=== PATIENT | male | born 1975 | race Caucasian/White ===

== ENCOUNTER 2016-11-14 11:47 | Emergency (ER) | payer SELFPAY ==
[~2016-11-14] VITALS: Ht 188 cm; Wt 62.8 kg
[~2016-11-14 11:47] MED LIST: BACT2OIN TOP; BACT800T5 PO; CARB6.5S5 EACH EAR; CORTIS10A EACH EAR; ERYT1O EACH EYE; PERM5CRE TOP
[2016-11-14 11:53] VITALS: BP 119/89; PULSE 88; RESP 18; TEMP 97.4; O2SAT 100
--- NOTE | 2016-11-14 13:16 | PD ---
HPI Chief Complaint: Skin Problem Time Seen by Provider: 13:13 Travel History International Travel<30 days: No Contact w/Intl Traveler<30days: No Traveled to known affect area: No History of Present Illness HPI Patient comes in complaining of painful lump on his left earlobe ongoing for 8 days. Patient's significant other has been puncturing it and draining some pus , however it keeps filling back up. Patient states he's had similar past on his other ear that went away after simple puncturing. Patient has pain that is throbbing like in nature without radiation. Pain is worse to palpation. Denies any fevers. PFSH Past Medical History Narrative Medical Alcoholism, alcohol withdrawal seizures Past Surgical History Appendectomy: Yes Other Surgery: Yes (AMPUTATION OF 2ND DIGIT OF LEFT HAND) Social History Alcohol Use: Yes (DAILY) Tobacco Use: Yes (ppd) Substance Use: No Allergies-Medications (Allergen,Severity, Reaction): Coded Allergies: No Known Allergies (Verified , 11/14/16) Reported Meds & Prescriptions Reported Meds & Active Scripts Active Bactrim DS (Sulfamethoxazole-Trimethoprim) 800-160 Mg Tab 1 Tab PO BID Elimite (Permethrin) 5 % Cr 60 Gm TOP DIRECTED PATIENT INSTRUCTIONS: THOROUGHLY MASSAGE ELIMITE (PERMETHRIN) 5% CREAM INTO THE SKIN FROM HEAD TO TOE COVERING ALL EXTERNAL BODY PARTS. THE CREAM SHOULD BE REMOVED BY WASHING (SHOWER OR BATH) 8 TO 14 HOURS AFTER APPLICATION. PATIENTS MAY EXPERIENCE ITCHING AFTER TREATMENT AND IS RARELY A SIGN OF TREATMENT FAILURE. Cortisporin Otic Suspension (Neomycin/Polymyxin/Hydrocortisone) 10 Ml Susp 4 Drop EACH EAR QID 7 Days Debrox (Carbamide Peroxide) 6.5 % Soln 5 Drop EACH EAR BID 5 Days Erythromycin Opht 0.5% Oint (Erythromycin) 0.5 % Oint 1 Applic EACH EYE TID Instill 1/2 inch Bactrim DS (Sulfamethoxazole-Trimethoprim DS) 1 Tab Tab 1 Tab PO BID Bactroban 2% Oint (22 gm) (Mupirocin) 22 Gm Oint 2 % TOP BID 10 Days APPLY TO AFFECTED AREAS Review of Systems Except as stated in HPI: all other systems reviewed are Neg Physical Exam Narrative GENERAL: Well-developed, well nourished, in no acute distress, and non-ill appearing. SKIN: Warm and dry. Small fluctuant abscess noted on left earlobe that is tender to palpation. There is no active drainage noted currently. HEAD: Atraumatic. Normocephalic. EYES: Pupils equal and round. EOMI. No scleral icterus. No injection or drainage. ENT: No nasal bleeding or discharge. Mucous membranes pink and moist. NECK: Trachea midline. Supple. No nuclear rigidity. RESPIRATORY: No accessory muscle use. No respiratory distress. MUSCULOSKELETAL: No obvious deformities. No clubbing. No cyanosis. No edema. Full range of motion. NEUROLOGICAL: Awake and alert. No obvious cranial nerve deficits. Motor grossly within normal limits. Normal speech. PSYCHIATRIC: Appropriate mood and affect; insight and judgment normal. Data Data Last Documented VS Vital Signs Date Time Temp Pulse Resp B/P Pulse Ox O2 Delivery O2 Flow Rate FiO2 11/14/16 11:53 97.4 88 18 119/89 100 Orders Wound Culture And Gram Stain (11/14/16 13:12) MDM Medical Decision Making Medical Screen Exam Complete: Yes Emergency Medical Condition: Yes Differential Diagnosis Abscess, cellulitis, keloid, other Narrative Course The patient has no evidence of significant cellulitis. There is no evidence of necrotizing fasciitis/ For[place] at this time. The patient will be discharged on antibiotics. The patient was given signs and symptoms warnings for worsening infection, such as spreading of redness, increasing pain, and/or swelling, associated heat, or fever or feels worse, and instructed to return immediately if these signs or symptoms worsen. The patient is to return in 2 days for recheck. Sooner if worsens or as needed. The patient agrees with plan. Patient in no obvious distress upon re-evaluation. Patient was asked if they wanted to speak to my attending, which the patient did not wish to do at this time. Any questions/concerns in reference to patient diagnosis/condition discussed and clarified prior to patient's discharge. Reinforced sheer importance of close follow up with patient's primary physician or primary care clinic. Instructed patient to return to ED immediately, if symptoms return/ worsen. Pt showed understanding of above instructions. Further instructions and recommendations were detailed in discharge paperwork. Pt ambulated without difficulty out of ED at discharge. Procedures Procedure Narrative Verbal consent was obtained. Area was cleaned and prepped which caused to start draining spontaneously. Culture was obtained. Abscess was drained. Patient tolerated the procedure well. There was no complications. Diagnosis Primary Impression: Abscess of left earlobe Patient Instructions: Abscess (GEN), Abscess Follow-up (ED), General Instructions Additional Instructions: Follow-up with your primary care physician or return here in 2 days for recheck. Take all medication as prescribed. Return to the emergency department if symptoms get worse. Med/Other Pt SpecificInfo: Prescription(s) given Scripts Sulfamethoxazole-Trimethoprim (Bactrim DS)800-160 Mg Tab1 Tab PO BID #20 TAB Ref 0 Prov:Concepción Duvall MD 11/14/16 Disposition: 01 DISCHARGE HOME Condition: Stable Tyron Oliver Nov 14, 2016 13:16
[2016-11-14] MEDS ORDERED: BACT800T5 PO (13:17)
== END 2016-11-14 13:44 | disposition home or self-care (01) ==
LOC: PHED 11:47 → PHEFT 13:44
DX: H60.02 Abscess of left external ear (principal)
CPT/HCPCS: 87070; 87205; 99283

== ENCOUNTER 2016-12-23 10:26 | Emergency (ER) | payer SELFPAY ==
[~2016-12-23] VITALS: Ht 188 cm; Wt 62.0 kg
[~2016-12-23 10:26] MED LIST changes: -BACT2OIN TOP; -CARB6.5S5 EACH EAR; -CORTIS10A EACH EAR; -ERYT1O EACH EYE; -PERM5CRE TOP
[2016-12-23 10:27] VITALS: BP 108/80; PULSE 91; RESP 16; TEMP 97.8; O2SAT 98
[2016-12-23] MEDS ORDERED: MUPI2%T TOPICAL (10:47)
[2016-12-23] MEDS ORDERED: BACT800T5 PO (10:47)
[2016-12-23] MEDS ORDERED: CEPH-460 PO (10:47)
--- NOTE | 2016-12-23 10:47 | PD ---
HPI Chief Complaint: Skin Problem Time Seen by Provider: 10:33 Travel History International Travel<30 days: No Contact w/Intl Traveler<30days: No Traveled to known affect area: No History of Present Illness HPI This is a 41-year-old male who presents to the emergency department with a rash on his lower abdomen on the left which has been present for 4-5 days, itchy, moderate severity, constant. He says his daughter was recently hospitalized with MRSA. He denies any fevers or chills. PFSH Past Medical History Hx Anticoagulant Therapy: No Diabetes: No Influenza Vaccination: No Past Surgical History Appendectomy: Yes Other Surgery: Yes (AMPUTATION OF 2ND DIGIT OF LEFT HAND) Social History Alcohol Use: Yes (DAILY) Tobacco Use: Yes (ppd) Substance Use: No Allergies-Medications (Allergen,Severity, Reaction): Coded Allergies: No Known Allergies (Verified , 11/14/16) Reported Meds & Prescriptions Reported Meds & Active Scripts Active Bactrim DS (Sulfamethoxazole-Trimethoprim) 800-160 Mg Tab 1 Tab PO BID Review of Systems General / Constitutional: No: Fever, Chills Respiratory: No: Shortness of Breath Physical Exam Narrative GENERAL: Well-appearing, no acute distress, nontoxic SKIN: 2 cm annular lesion on the left abdomen immediately above the groin along the pain at line with some induration, no pale center HEAD: Atraumatic. Normocephalic. ENT: No nasal bleeding or discharge. Moist mucous membranes MUSCULOSKELETAL: No obvious deformities. No clubbing. No cyanosis. No edema. NEUROLOGICAL: Awake and alert. No obvious cranial nerve deficits. Motor grossly within normal limits. Normal speech. PSYCHIATRIC: Appropriate mood and affect; insight and judgment normal. Data Data Last Documented VS Vital Signs Date Time Temp Pulse Resp B/P Pulse Ox O2 Delivery O2 Flow Rate FiO2 12/23/16 10:27 97.8 91 16 108/80 98 MDM Medical Decision Making Medical Screen Exam Complete: Yes Emergency Medical Condition: Yes Differential Diagnosis Contact dermatitis, cellulitis, ringworm, abscess Narrative Course This is a 41-year-old male who presents to the emergency department with a lesion on his left lower abdomen which appears to be a contact dermatitis. He did recently purchased new pants and wore them without washing them from the store and I suspect this may be the source. Patient does have a recent contact with MRSA. In the setting of this, patient will be discharged with antibiotics but I did advise him to avoid his new pants as I suspect this is the source of his skin lesion. Diagnosis Primary Impression: Contact dermatitis Qualified Code: L24.9 - Irritant contact dermatitis, unspecified trigger Patient Instructions: General Instructions Additional Instructions: If you develop fever, increasing redness, warmth, or spreading of your infection , or severe pain return to the emergency department immediately as you may require antibiotics through your IV. Complete your course of antibiotics as prescribed. Med/Other Pt SpecificInfo: Prescription(s) given Scripts Mupirocin Topical (Bactroban Topical)2 % Cream1 Applic TOPICAL BID #1 TUBE Ref 0 Prov:Anju Oconnell MD 12/23/16 Sulfamethoxazole-Trimethoprim (Bactrim DS)800-160 Mg Tab1 Tab PO BID #10 TAB Ref 0 Prov:Anju Oconnell MD 12/23/16 Cephalexin (Keflex)500 Mg [id number] Mg PO Q6H 5 Days Ref 0 Prov:Anuj Oconnell MD 12/23/16 Disposition: 01 DISCHARGE HOME Condition: Stable Anju Oconnell MD Dec 23, 2016 10:47
== END 2016-12-23 11:12 | disposition home or self-care (01) ==
LOC: PHEFT 10:26
DX: L25.9 Unspecified contact dermatitis, unspecified cause (principal)
CPT/HCPCS: 99282

== ENCOUNTER 2017-01-09 18:05 | Emergency (ER) | payer SELFPAY ==
[~2017-01-09] VITALS: Ht 188 cm; Wt 62.0 kg
[~2017-01-09 18:05] MED LIST changes: +CEPH-460 PO; +MUPI2%T TOPICAL
[2017-01-09 18:10] VITALS: BP 151/93; PULSE 108; RESP 16; TEMP 97.9; O2SAT 95
[2017-01-09] MEDS ORDERED: BACT800T5 PO (18:33)
[2017-01-09] MEDS ORDERED: IBUP800T23 PO (18:33)
--- NOTE | 2017-01-09 18:36 | PD ---
HPI Chief Complaint: Lump, Cyst, Hernia Time Seen by Provider: 18:33 Travel History International Travel<30 days: No Contact w/Intl Traveler<30days: No Traveled to known affect area: No History of Present Illness HPI 41-year-old male presents to emergency Department with swollen, erythematous, tender, lesion to the left upper lateral breast/[place] for the past 2 days. Patient may have been bitten or scratched by his pet rabbit. Patient has a history of MRSA. Patient states yesterday was the size of a dime and now it is approximately 3 inches in diameter. He denies any drainage or fever, or chills. Patient has no other acute complaints. He has no known drug allergies. PFSH Past Medical History Hx Anticoagulant Therapy: No Diabetes: No Influenza Vaccination: No Past Surgical History Appendectomy: Yes Other Surgery: Yes (AMPUTATION OF 2ND DIGIT OF LEFT HAND) Social History Alcohol Use: Yes (DAILY) Tobacco Use: Yes ( 1ppd) Substance Use: No Allergies-Medications (Allergen,Severity, Reaction): Coded Allergies: No Known Allergies (Verified , 01/09/17) Reported Meds & Prescriptions Reported Meds & Active Scripts Active Bactrim DS (Sulfamethoxazole-Trimethoprim) 800-160 Mg Tab 1 Tab PO BID Ibuprofen 800 Mg Tab 800 Mg PO Q8H PRN Review of Systems Except as stated in HPI: all other systems reviewed are Neg General / Constitutional: No: Fever, Chills Eyes: No: Visual changes HENT: No: Headaches Cardiovascular: No: Chest Pain or Discomfort Respiratory: No: Shortness of Breath Gastrointestinal: No: Abdominal Pain Genitourinary: No: Dysuria Musculoskeletal: No: Pain Skin: Positive Lesions, No Rash Neurologic: No: Weakness Psychiatric: No: Depression Endocrine: No: Polydipsia Hematologic/Lymphatic: No: Easy Bruising Physical Exam Narrative GENERAL: Patient appears in no acute distress. SKIN: Warm and dry. Normal color. Normal turgor. Patient is very disheveled. Patient has indurated erythematous tender swollen area to the left nipple at the 1 o'clock position without pointing or obvious signs of abscess. Erythema measures approximately 3 inches in diameter. There is no expressible drainage. There is no lymphangitis or streaking. HEAD: Atraumatic. Normocephalic. EYES: Pupils equal and round. No scleral icterus. No injection or drainage. ENT: No nasal bleeding or discharge. Mucous membranes pink and moist. Pharynx is normal. NECK: Trachea midline. Supple and nontender. CARDIOVASCULAR: Regular rate and rhythm. RESPIRATORY: No accessory muscle use. Clear to auscultation. Breath sounds equal bilaterally. MUSCULOSKELETAL: Extremities without clubbing, cyanosis, or edema. No obvious deformities. NEUROLOGICAL: Awake and alert. No obvious cranial nerve deficits. Motor grossly within normal limits. Five out of 5 muscle strength in the arms and legs. Normal speech. PSYCHIATRIC: Appropriate mood and affect; insight and judgment normal. Data Data Last Documented VS Vital Signs Date Time Temp Pulse Resp B/P Pulse Ox O2 Delivery O2 Flow Rate FiO2 01/09/17 18:10 97.9 108 16 151/93 95 MDM Medical Decision Making Medical Screen Exam Complete: Yes Emergency Medical Condition: Yes Medical Record Reviewed: Yes Differential Diagnosis Cellulitis. Mastitis. MRSA. Narrative Course Patient is medically stable at time of exam. Drainable abscesses not felt present at this time. Patient will be given Bactrim DS twice a day 10 days. Patient also given ibuprofen 800 mg 3 times daily with food #30. Patient is to use hot compresses to the area and follow up if symptoms do not improve over the next 48 hours. Diagnosis Primary Impression: Cellulitis of left breast Patient Instructions: Cellulitis (ED), General Instructions, MRSA (Methicillin Resistant Staphylococcus Aureus) (ED) Additional Instructions: Drainable abscesses not felt present at this time. Patient will be given Bactrim DS twice a day 10 days. Patient also given ibuprofen 800 mg 3 times daily with food #30. Patient is to use hot compresses to the area and follow up if symptoms do not improve over the next 48 hours. Med/Other Pt SpecificInfo: Prescription(s) given Scripts Sulfamethoxazole-Trimethoprim (Bactrim DS)800-160 Mg Tab1 Tab PO BID #20 TAB Prov:Yuan Rosen MD 01/09/17 Ibuprofen 800 Mg Nva080 Mg PO Q8H PRN (Pain/Inflammation) #30 TAB Prov:Yuan Rosen MD 01/09/17 Disposition: 01 DISCHARGE HOME Condition: Stable Alverto Aguillon Jan 09, 2017 18:36
== END 2017-01-09 18:54 | disposition home or self-care (01) ==
LOC: PHEFT 18:05
DX: N61.0 Mastitis without abscess (principal); F17.210 Nicotine dependence, cigarettes, uncomplicated
CPT/HCPCS: 99282

== ENCOUNTER 2017-04-18 12:44 | Emergency (ER) | payer SELFPAY ==
[~2017-04-18] VITALS: Ht 188 cm; Wt 61.0 kg
[~2017-04-18 12:44] MED LIST changes: -CEPH-460 PO; +IBUP800T23 PO; -MUPI2%T TOPICAL
[2017-04-18 12:46] VITALS: BP 103/64; PULSE 104; RESP 16; TEMP 98.3; O2SAT 98
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
== END 2017-04-18 13:25 | disposition left against medical advice (07) ==
LOC: NEPD 12:44
DX: K08.89 Other specified disorders of teeth and supporting structures (principal); F17.200 Nicotine dependence, unspecified, uncomplicated
CPT/HCPCS: 99281

== ENCOUNTER 2017-06-21 17:51 | Emergency (ER) | payer SELFPAY ==
[~2017-06-21] VITALS: Ht 188 cm; Wt 56.0 kg
[2017-06-21 17:54] VITALS: BP 104/68; PULSE 122; RESP 20; TEMP 98; O2SAT 97
[2017-06-21] MEDS ORDERED: BACI500O9 TOPICAL (18:27)
[2017-06-21] MEDS ORDERED: BENA25CA4 PO (18:27)
[2017-06-21] MEDS ORDERED: LOTR1CRE3 TOPICAL (18:27)
--- NOTE | 2017-06-21 18:28 | PD ---
HPI Chief Complaint: Skin Problem Time Seen by Provider: 18:21 Travel History International Travel<30 days: No Contact w/Intl Traveler<30days: No Traveled to known affect area: No History of Present Illness HPI 41-year-old male patient who is homeless and has been living his van, presents to the ER today because he has had at least a one-week history of scaling rash on both arms which she has been scratching at. He states that he has a few friends who have also had the same rash. He denies any fevers, or rash anywhere else. He also states that he has history of chronic back pains and has been given hydrocodone by his primary care physician, states that he has been staying a lot in his van and his back pains have come back. He denies any new issues that his back pain, no fevers, no incontinence, or other issues. He is ambulatory without issues. Back pain has been a 7 out of 10 recently. Modifying Factors: None Associated Signs & Symptoms: Chronic back pain, rash to both arms Risk Factors: Possible sick contact, history chronic back pain PFSH Past Medical History Hx Anticoagulant Therapy: No Diabetes: No Past Surgical History Appendectomy: Yes Other Surgery: Yes (AMPUTATION OF 2ND DIGIT OF LEFT HAND) Social History Alcohol Use: Yes (DAILY) Tobacco Use: Yes ( 1ppd) Substance Use: No Allergies-Medications (Allergen,Severity, Reaction): Coded Allergies: No Known Allergies (Verified , 06/21/17) Reported Meds & Prescriptions Reported Meds & Active Scripts Active Bactrim DS (Sulfamethoxazole-Trimethoprim) 800-160 Mg Tab 1 Tab PO BID Ibuprofen 800 Mg Tab 800 Mg PO Q8H PRN Review of Systems Except as stated in HPI: all other systems reviewed are Neg Physical Exam Narrative GENERAL: Well-developed middle age white male patient currently in no acute distress. Awake and alert and oriented 3. SKIN: Focused skin assessment warm/dry. There are notable 1 cm round discoid scaling erythematous plaques on both elbow and forearm areas with the ones on the left notable for excoriations. No fluctuance. HEAD: Atraumatic. Normocephalic. EYES: Pupils equal and round. No scleral icterus. No injection or drainage. ENT: No nasal bleeding or discharge. Mucous membranes pink and moist. NECK: Trachea midline. No JVD. CARDIOVASCULAR: Regular rate and rhythm. No murmur appreciated. RESPIRATORY: No accessory muscle use. Clear to auscultation. Breath sounds equal bilaterally. GASTROINTESTINAL: Abdomen soft, non-tender, nondistended. Hepatic and splenic margins not palpable. MUSCULOSKELETAL: No obvious deformities. No clubbing. No cyanosis. No edema. NEUROLOGICAL: Awake and alert. No obvious cranial nerve deficits. Motor grossly within normal limits. Normal speech. PSYCHIATRIC: Appropriate mood and affect; insight and judgment normal. Data Data Last Documented VS Vital Signs Date Time Temp Pulse Resp B/P (MAP) Pulse Ox O2 Delivery O2 Flow Rate FiO2 06/21/17 17:54 98.0 122 20 104/68 (80) 97 Room Air MDM Medical Decision Making Medical Screen Exam Complete: Yes Emergency Medical Condition: Yes Medical Record Reviewed: Yes Differential Diagnosis Rash: Ringworm versus cellulitis versus allergic reaction, chronic back pain versus strain Narrative Course Patient is ambulatory in the ER does not appear to be any acute distress. He has no focal neurological deficits or any incontinence. At this point, I suspect that this is his chronic back pains. He states it is and he states that he wanted a refill of his hydrocodone. I have notified him that we will not be doing that here and that he can follow-up with primary care physician for further treatment. The rash has appearance of ringworm and his left side appears to be fairly excoriated with some mild underlying cellulitis. My plan would be to treat him with antibiotics and antifungal cream. Follow-up with primary care physician. Return for any worsening in issues as needed. The plan has discussed with him and he states understanding. Diagnosis Primary Impression: Ringworm Med/Other Pt SpecificInfo: Prescription(s) given Scripts Bacitracin Topical (Bacitracin Topical) 500 Unit/Gm Oint 1 APPLIC TOPICAL BID for Infection, #30 GM 0 Refills Prov: Jaye Raya MD 06/21/17 Butenafine Topical (Lotrimin Ultra Topical) 1% Cream 1 APPLIC TOPICAL BID for Infection, #1 TUBE 0 Refills Apply to: Prov: Jaye Raya MD 06/21/17 Diphenhydramine HCl (Benadryl Allergy) 25 Mg Cap 25 MG PO QID Y for ITCHING, #20 Prov: Jaye Raya MD 06/21/17 Disposition: 01 DISCHARGE HOME Condition: Stable Soontharothai,Rewadee MD Jun 21, 2017 18:28
[2017-06-21 19:09] VITALS: BP 98/67; PULSE 90; RESP 18; O2SAT 98
== END 2017-06-21 19:10 | disposition home or self-care (01) ==
LOC: NEPC 17:51
DX: B35.9 Dermatophytosis, unspecified (principal); F17.200 Nicotine dependence, unspecified, uncomplicated; Z59.0 Homelessness
CPT/HCPCS: 99282

== ENCOUNTER 2017-09-29 09:29 | Emergency (ER) | payer SELFPAY ==
[~2017-09-29] VITALS: Ht 188 cm; Wt 63.5 kg
[~2017-09-29 09:29] MED LIST changes: +BACI500O9 TOPICAL; +BENA25CA4 PO; +IBUP1TAB7 PO; -IBUP800T23 PO; +LOTR1CRE3 TOPICAL
[2017-09-29 09:31] VITALS: BP 119/85; PULSE 99; RESP 13; TEMP 97.9; O2SAT 100
--- NOTE | 2017-09-29 10:02 | PD ---
HPI Chief Complaint: ENT Complaint Time Seen by Provider: 09:50 Travel History International Travel<30 days: No Contact w/Intl Traveler<30days: No Traveled to known affect area: No History of Present Illness HPI 42-year-old male presents to the emergency room for evaluation of left ear fullness and decreased hearing for the past week. Patient states he started applying [id number] eardrops without any relief in symptoms. His significant other with him states she has been having disagreement him to get him to respond to her. Patient denies any significant ear pain, drainage, or fevers. No other associated symptoms. States last time he had this issue, he came to the emergency room in the cleaned out his ears for him. History Social History Alcohol Use: Yes (DAILY) Tobacco Use: Yes ( 1ppd) Allergies-Medications (Allergen,Severity, Reaction): Coded Allergies: No Known Allergies (Verified Adverse Reaction, Unknown, 09/29/17) Reported Meds & Prescriptions Reported Meds & Active Scripts Active Review of Systems Except as stated in HPI: all other systems reviewed are Neg Physical Exam Narrative GENERAL: Well-nourished, well-developed male in no acute distress. Afebrile. Ambulatory. SKIN: Focused skin assessment warm/dry. HEAD: Normocephalic. EYES: No scleral icterus. No injection or drainage. EARS: Bilateral pinnae and external canals appear within normal limits. Right tympanic membrane is unremarkable. Left ear canal is occluded with cerumen. NECK: Supple, trachea midline. No JVD or lymphadenopathy. CARDIOVASCULAR: Regular rate and rhythm without murmurs, gallops, or rubs. RESPIRATORY: Breath sounds equal bilaterally. No accessory muscle use. Data Data Last Documented VS Vital Signs Date Time Temp Pulse Resp B/P (MAP) Pulse Ox O2 Delivery O2 Flow Rate FiO2 09/29/17 09:31 97.9 99 13 119/85 (96) 100 MDM Medical Screen Exam Complete: Yes Emergency Medical Condition: No Differential Diagnosis Cerumen impaction Narrative Course 42-year-old male presents to the emergency room for evaluation of left ear decreased hearing and fullness for the past week. No pain, fevers, or drainage. Physical exam reveals cerumen impaction in the left ear. He has history of cerumen impaction and requests to have his ear irrigated in the ED. There are no urgent or emergent medical conditions at this time. A medical screening exam was performed: At the time of evaluation the presenting medical condition was determined not to be of an emergent nature. The patient was given the option of receiving additional care, but declined. Patient was given options for additional community resources from which to obtain care. The Patient Has Been advised to seek medical attention for their presenting complaint. The patient has been advised to return to the ER at any time if an emergent condition develops. Primary Impression: Encounter for medical screening examination Disposition: 01 DISCHARGE HOME Condition: Stable Yael Watson Sep 29, 2017 10:02
== END 2017-09-29 10:09 | disposition left against medical advice (07) ==
LOC: NEPK 09:29
DX: H61.22 Impacted cerumen, left ear (principal)
CPT/HCPCS: 99281; 99282

== ENCOUNTER 2017-11-22 08:57 | Emergency (ER) | payer SELFPAY ==
[~2017-11-22] VITALS: Ht 188 cm; Wt 63.5 kg
[2017-11-22 09:04] VITALS: BP 121/83; PULSE 98; RESP 18; TEMP 97.3; O2SAT 99
--- NOTE | 2017-11-22 09:40 | PD ---
HPI Chief Complaint: ENT Complaint Time Seen by Provider: 09:11 Travel History International Travel<30 days: No Contact w/Intl Traveler<30days: No Traveled to known affect area: No History of Present Illness HPI Is a 42-year-old male here with left ear pain and decreased hearing for several weeks. Denies fever or chills. No aggravating or alleviating factors. Symptoms severity is mild. PFSH Past Medical History Medical History: Denies Significant Hx Hx Anticoagulant Therapy: No Diabetes: No Diminished Hearing: No Seizures: Yes Sleep Apnea: Yes Influenza Vaccination: No Past Surgical History Appendectomy: Yes Other Surgery: Yes (AMPUTATION OF 2ND DIGIT OF LEFT HAND) Social History Alcohol Use: Yes (DAILY) Tobacco Use: Yes ( 1ppd) Substance Use: No ( ) Allergies-Medications (Allergen,Severity, Reaction): Coded Allergies: No Known Allergies (Verified Adverse Reaction, Unknown, 11/22/17) Reported Meds & Prescriptions Reported Meds & Active Scripts Active No Active Prescriptions or Reported Medications Review of Systems Except as stated in HPI: all other systems reviewed are Neg General / Constitutional: No: Fever HENT: Positive: Earache Physical Exam Narrative GENERAL: Alert well-appearing 42-year-old male. Disheveled appearance. SKIN: Warm and dry. HEAD: Normocephalic. EYES: No injection or drainage. Ear/nose/throat: Left ear cerumen impaction. No mastoid tenderness. NECK: Supple. No lymphadenopathy. Data Data Last Documented VS Vital Signs Date Time Temp Pulse Resp B/P (MAP) Pulse Ox O2 Delivery O2 Flow Rate FiO2 11/22/17 09:04 97.3 98 18 121/83 (96) 99 Orders Orders Ear Irrigation (11/22/17 09:26) [facility] Medical Decision Making Medical Screen Exam Complete: Yes Emergency Medical Condition: Yes Differential Diagnosis Cerumen impaction, otitis media, otitis externa Narrative Course This is a 42-year-old male here with cerumen impaction left ear. Ear was irrigated by ecologist technician. Patient tolerated procedure well. TM intact post irritation. There is TM erythema he will be covered with amoxicillin for otitis media. Diagnosis Primary Impression: Cerumen impaction Qualified Codes: H61.22 - Impacted cerumen, left ear Referrals: [email or web address] Scripts Amoxicillin (Amoxicillin) 500 Mg Tab 500 MG PO TID for Infection for 10 Days, TAB 0 Refills Prov: Kaykay Valera 11/22/17 Disposition: 01 DISCHARGE HOME Condition: Stable Kaykay Valera Nov 22, 2017 09:40
[2017-11-22] MEDS ORDERED: AMOX500T PO (09:52)
== END 2017-11-22 10:05 | disposition home or self-care (01) ==
LOC: PHEFT 08:57
DX: H61.22 Impacted cerumen, left ear (principal); R56.9 Unspecified convulsions; F17.200 Nicotine dependence, unspecified, uncomplicated
CPT/HCPCS: 99283

== ENCOUNTER 2017-11-28 10:55 | Emergency (ER) | payer SELFPAY ==
[~2017-11-28] VITALS: Ht 188 cm; Wt 63.5 kg
[~2017-11-28 10:55] MED LIST changes: +AMOX500T PO; -BACI500O9 TOPICAL; -BACT800T5 PO; -BENA25CA4 PO; -IBUP1TAB7 PO; -LOTR1CRE3 TOPICAL
[2017-11-28 11:02] VITALS: BP 128/66; PULSE 109; RESP 20; TEMP 98; O2SAT 100
[2017-11-28] MEDS ORDERED: SODIUM CHLORIDE 0.9% FLUSH 10 ML FLUSH IVF PRN (11:30)
[2017-11-28] MEDS ORDERED: CLINDAMYCIN INJ 600 MG in SODIUM CHLORIDE 0.9% INJ 100 ML IV ONE (11:30)
[2017-11-28] MEDS ORDERED: KETOROLAC TROMETHAMINE 30 MG/ML (IVP) VIAL IV PUSH ONE (11:30)
[2017-11-28] MEDS ORDERED: CLINDAMYCIN 600 MG/NS PREMIX 50 ML IV ONE (11:30)
--- NOTE | 2017-11-28 11:32 | PD ---
HPI Chief Complaint: Skin Problem Time Seen by Provider: 11:13 Travel History International Travel<30 days: No Contact w/Intl Traveler<30days: No Traveled to known affect area: No History of Present Illness HPI 42yo M with PMH of alcohol abuse, seizure not on any medication presents to the ED with c/o left arm pain. Said he missed the last step 3 days ago and fell onto floor on left forearm. Said he has redness streaking up and down left humerus and left forearm since yesterday. Pt is also complaining of left sided chest pain today. Said it is sharp, intermittent, lasting seconds at a time. Denies any fever, sob, n/v, abdominal pain, focal weakness or numbness. Denies any IVDA. PFSH Past Medical History Hx Anticoagulant Therapy: No Diabetes: No Diminished Hearing: No Seizures: Yes Sleep Apnea: Yes Past Surgical History Appendectomy: Yes Other Surgery: Yes (AMPUTATION OF 2ND DIGIT OF LEFT HAND) Social History Alcohol Use: Yes (DAILY) Tobacco Use: Yes ( 1ppd) Substance Use: No ( ) Allergies-Medications (Allergen,Severity, Reaction): Coded Allergies: No Known Allergies (Verified Adverse Reaction, Unknown, 11/22/17) Reported Meds & Prescriptions Reported Meds & Active Scripts Active Tylenol (Acetaminophen) 325 Mg Tab 650 Mg PO Q6H PRN Clindamycin (Clindamycin HCl) 300 Mg Cap 300 Mg PO Q6H 10 Days Review of Systems Except as stated in HPI: all other systems reviewed are Neg Physical Exam Narrative GENERAL: 42yo M in mild distress. +Alcohol on breath. SKIN: Focused skin assessment warm/dry. HEAD: Atraumatic. Normocephalic. EYES: Pupils equal and round at 3mm bilaterally. EOMI. ENT: No nasal bleeding or discharge. Mucous membranes pink and moist. NECK: Trachea midline. No JVD. CARDIOVASCULAR: Regular rate and rhythm. No murmur appreciated. RESPIRATORY: No accessory muscle use. Clear to auscultation. Breath sounds equal bilaterally. GASTROINTESTINAL: Abdomen soft, non-tender, nondistended. No rebound tenderness or guarding. MUSCULOSKELETAL: Left upper extremity: +Abrasions in left forearm. No fluctuance. +Erythema from distal radius/ulna to proximal humerus. Soft compartments. Erythema on volar surface. Radial pulse 2+. Sensation intact. FROM left shoulder, elbow, wrist. NEUROLOGICAL: Awake and alert. No obvious cranial nerve deficits. Motor grossly within normal limits. Normal speech. Data Data Last Documented VS Vital Signs Date Time Temp Pulse Resp B/P (MAP) Pulse Ox O2 Delivery O2 Flow Rate FiO2 11/28/17 14:00 62 11/28/17 11:52 100 Room Air 11/28/17 11:02 98.0 20 128/66 (86) Orders Orders Electrocardiogram (11/28/17 11:25) Basic Metabolic Panel (Bmp) (11/28/17 11:25) Complete Blood Count With Diff (11/28/17 11:25) Magnesium (Mg) (11/28/17 11:25) Prothrombin Time / Inr (Pt) (11/28/17 11:25) Act Partial Throm Time (Ptt) (11/28/17 11:25) Troponin I (11/28/17 11:25) Chest, Single Ap (11/28/17 11:25) Ecg Monitoring (11/28/17 11:25) Bilateral Bp Monitoring (11/28/17 11:25) Iv Access Insert/Monitor (11/28/17 11:25) Oximetry (11/28/17 11:25) Sodium Chloride 0.9% Flush (Ns Flush) (11/28/17 11:30) Alcohol (Ethanol) (11/28/17 11:25) Forearm (2vws) (11/28/17 ) Humerus (Min 2vws) (11/28/17 ) Blood Culture (11/28/17 11:25) Lactic Acid Sepsis Protocol (11/28/17 11:25) Clindamycin Inj (Cleocin Inj) (11/28/17 11:30) Ketorolac Inj (Toradol Inj) (11/28/17 11:30) Clindamycin 600 Mg/Ns Premix (Cleocin 60 (11/28/17 11:30) Sodium Chlor 0.9% 1000 Ml Inj (Ns 1000 M (11/28/17 13:15) Thiamine Inj (Thiamine Inj) (11/28/17 13:15) Potassium Chloride (Kcl) (11/28/17 13:30) Magnesium Sulfate 1 Gm Premix (Magnesium (11/28/17 13:45) Lactic Acid (11/28/17 14:30) Tetanus/Diphtheria Tox Adult (Tetanus/Di (11/28/17 14:30) Ed Discharge Order (11/28/17 15:56) Labs Laboratory Tests Test 11/28/17 11:40 11/28/17 14:50 White Blood Count 5.4 TH/MM3 Red Blood Count 4.29 MIL/MM3 Hemoglobin 10.9 GM/DL Hematocrit 34.1 % Mean Corpuscular Volume 79.4 FL Mean Corpuscular Hemoglobin 25.3 PG Mean Corpuscular Hemoglobin Concent 31.9 % Red Cell Distribution Width 20.3 % Platelet Count 97 TH/MM3 Mean Platelet Volume 7.0 FL Neutrophils (%) (Auto) 54.7 % Lymphocytes (%) (Auto) 31.4 % Monocytes (%) (Auto) 9.5 % Eosinophils (%) (Auto) 3.0 % Basophils (%) (Auto) 1.4 % Neutrophils # (Auto) 3.0 TH/MM3 Lymphocytes # (Auto) 1.7 TH/MM3 Monocytes # (Auto) 0.5 TH/MM3 Eosinophils # (Auto) 0.2 TH/MM3 Basophils # (Auto) 0.1 TH/MM3 CBC Comment AUTO DIFF Differential Comment AUTO DIFF CONFIRMED Platelet Estimate LOW Platelet Morphology Comment NORMAL Prothrombin Time 11.5 SEC Prothromb Time International Ratio 1.1 RATIO Activated Partial Thromboplast Time 32.4 SEC Blood Urea Nitrogen 3 MG/DL Creatinine 0.54 MG/DL Random Glucose 102 MG/DL Calcium Level 8.6 MG/DL Magnesium Level 1.3 MG/DL Sodium Level 137 MEQ/L Potassium Level 3.3 MEQ/L Chloride Level 101 MEQ/L Carbon Dioxide Level 27.1 MEQ/L Anion Gap 9 MEQ/L Estimat Glomerular Filtration Rate 165 ML/MIN Lactic Acid Level 2.3 mmol/L 1.6 mmol/L Troponin I LESS THAN 0.02 NG/ML Ethyl Alcohol Level 421 MG/DL [facility] Medical Decision Making Medical Screen Exam Complete: Yes Emergency Medical Condition: Yes Interpretation(s) EKG: NSR 89bpm. Normal axis. No ST segment elevation or depression. Differential Diagnosis Cellulitis vs. contusion vs. fracture vs. ACS vs. musculoskeletal chest pain Narrative Course 42yo M with left arm infection. Pt is a chronic alcohol abuser and has alcohol on breath. Pt given IV clindamycin. Labs reviewed, no leukocytosis. H/H low at 10.9/34.1, no prior to compare but likely chronic given chronic alcohol abuse. Thrombocytopenic at 97,000 likely chronic as well. Mild hypokalemia at 3.3, replaced orally. Troponin negative. Mild hypomagnesemia, replaced with magnesium sulfate. Blood alcohol is elevated at 421. CXR negative. Xray left humerus and forearm unremarkable. Lactic acid mildly elevated at 2.3, pt given NS IVF. Will repeat lactic acid. Chest pain is very atypical, do not think it is cardiac. Pt is also intoxicated. Pt allowed to rest in the ED and has been sleeping comfortably. Repeat lactic acid 1.6. Pt's is with him and pt has been sleeping for hours and more sober now. Pt reevaluated at bedside and denies any chest pain. Said arm pain is better and wants to go home. He is nontoxic appearing and repeat HR is now 62bpm. Will try outpatient treatment first. Strict return precautions given. Diagnosis Primary Impression: Cellulitis of left arm Patient Instructions: General Instructions Departure Forms: Tests/Procedures Additional Instructions: Please follow up with your primary care physician in 2-3 days. Return to the ED in 1-2 days if symptoms do not improve or worsen. Med/Other Pt SpecificInfo: Prescription(s) given Scripts Acetaminophen (Tylenol) 325 Mg Tab 650 MG PO Q6H Y for PAIN SCALE 1 TO 4, #20 TAB 0 Refills Prov: Gaby Ribeiro DO 11/28/17 Clindamycin (Clindamycin) 300 Mg Cap 300 MG PO Q6H for Infection for 10 Days, #40 CAP 0 Refills Prov: Gaby Ribeiro DO 11/28/17 Disposition: 01 DISCHARGE HOME Condition: Stable Gaby Ribeiro DO Nov 28, 2017 11:32
[2017-11-28 11:52] VITALS: O2SAT 100
[2017-11-28 12:09] LABS: BASOPHIL # 0.1 TH/MM3 (0-0.2); BASOPHIL % 1.4 % (0.0-2.0); EOSINOPHIL # 0.2 TH/MM3 (0-0.4); HEMATOCRIT 34.1 % (39.0-51.0); HEMOGLOBIN 10.9 GM/DL (13.0-17.0); LYMPH % 31.4 % (9.0-44.0); LYMPHOCYTE # 1.7 TH/MM3 (1.0-4.8); MEAN CELL VOLUME 79.4 FL (80.0-100.0); MEAN CORPUSCULAR HEMOGLOBIN 25.3 PG (27.0-34.0); MEAN CORPUSCULAR HGB CONC 31.9 % (32.0-36.0); MONO % 9.5 % (0.0-8.0); MONOCYTE # 0.5 TH/MM3 (0-0.9); NEUT % 54.7 % (16.0-70.0); PLATELET COUNT 97 TH/MM3 (150-450); RED BLOOD COUNT 4.29 MIL/MM3 (4.50-5.90); RED CELL DISTRIBUTION WIDTH 20.3 % (11.6-17.2); WHITE BLOOD COUNT 5.4 TH/MM3 (4.0-11.0)
[2017-11-28 12:19] LABS: INTERNATIONAL NORMALIZED RATIO 1.1 RATIO; PROTHROMBIN TIME - PATIENT 11.5 SEC (9.8-11.6)
[2017-11-28 12:21] LABS: BICARBONATE 27.1 MEQ/L (21.0-32.0); BLOOD UREA NITROGEN 3 MG/DL (7-18); CALCIUM 8.6 MG/DL (8.5-10.1); CHLORIDE 101 MEQ/L (98-107); CREATININE 0.54 MG/DL (0.60-1.30); GLOMERULAR FILTRATION RATE 165 ML/MIN (>89); GLUCOSE,RANDOM 102 MG/DL (74-106); MAGNESIUM 1.3 MG/DL (1.5-2.5); SODIUM (NA) 137 MEQ/L (136-145)
[2017-11-28 12:23] LABS: LACTIC ACID SEPSIS PROTOCOL 2.3 mmol/L (0.4-2.0)
[2017-11-28 12:25] LABS: TROPONIN I LESS THAN 0.02 NG/ML (0.02-0.05)
--- NOTE | 2017-11-28 12:55 | RADRPT ---
EXAM DATE/TIME: 11/28/2017 12:22 [facility] COMPARISON: No previous studies available for comparison. INDICATIONS : Fall from [place] ladder, left upper extremity pain. MEDICAL HISTORY : None. SURGICAL HISTORY : None. ENCOUNTER: Initial ACUITY: 3 days PAIN SCORE: 4/10 LOCATION: Left upper extremity ulna side and medial side of humerus FINDINGS: Two view examination of the left forearm demonstrates no evidence of fracture or dislocation. Bony m ineralization is normal. The soft tissue structures are intact. CONCLUSION: Unremarkable examination of the left forearm. Elio Cochran MD on November 28, 2017 at 12:54 Board Certified Radiologist. This report was verified electronically.
--- NOTE | 2017-11-28 12:58 | RADRPT ---
EXAM DATE/TIME: 11/28/2017 12:28 [facility] COMPARISON: No previous studies available for comparison. INDICATIONS : Fall from [email or web address] ladder, left upper extremity pain. MEDICAL HISTORY : None. SURGICAL HISTORY : None. ENCOUNTER: Initial ACUITY: 3 days PAIN SCORE: 4/10 LOCATION: Left upper extremity humerus medial side. FINDINGS: Two view examination of the left humerus demonstrates no evidence of fracture or dislocation. Bony m ineralization is normal. The soft tissue structures are intact. CONCLUSION: Unremarkable examination of the left humerus. Elio Cochran MD on November 28, 2017 at 12:57 Board Certified Radiologist. This report was verified electronically.
--- NOTE | 2017-11-28 12:59 | RADRPT ---
EXAM DATE/TIME: 11/28/2017 12:34 [facility] COMPARISON: No previous studies available for comparison. INDICATIONS : Shortness of breath and cough. MEDICAL HISTORY : None. SURGICAL HISTORY : None. ENCOUNTER: Initial ACUITY: 3 days PAIN SCORE: 0/10 LOCATION: Bilateral chest FINDINGS: A single view of the chest demonstrates the lungs to be symmetrically aerated without evidence of mas s, infiltrate or effusion. The cardiomediastinal contours are unremarkable. Osseous structures are intact. CONCLUSION: Normal examination. Elio Cochran MD on November 28, 2017 at 12:58 Board Certified Radiologist. This report was verified electronically.
[2017-11-28] MEDS ORDERED: THIAMINE INJ 100 MG in SODIUM CHLORIDE 0.9% INJ 100 ML IV ONE (13:15)
[2017-11-28] MEDS ORDERED: SODIUM CHLOR 0.9% 1000 ML INJ 1,000 ML IV ONE (13:15)
[2017-11-28] MEDS ORDERED: POTASSIUM CHLORIDE 20 MEQ CONTROLLED RELEASE TAB PO ONE (13:30)
[2017-11-28] MEDS ORDERED: MAGNESIUM SULFATE 1 GM PREMIX 100 ML IV ONE (13:45)
[2017-11-28 14:00] VITALS: PULSE 62
[2017-11-28] MEDS ORDERED: TETANUS/DIPHTHERIA TOXOID ADULT 0.5 ML VIAL IM ONE (14:30)
[2017-11-28] MEDS ORDERED: CLIN300C5 PO (15:54)
[2017-11-28] MEDS ORDERED: TYLE325T PO (15:54)
[2017-11-28 16:01] VITALS: BP 124/68
--- NOTE | 2017-11-29 13:21 | EKG ---
Date Performed: 11/28/2017 Time Performed: 11:39:03 PTAGE: 42 years EKG: Sinus rhythm NORMAL ECG NO PREVIOUS TRACING DOCTOR: Elio Powell Interpretating Date/Time 11/29/2017 13:18:18
== END 2017-11-28 16:15 | disposition home or self-care (01) ==
LOC: NEPD 10:55
DX: L03.114 Cellulitis of left upper limb (principal); E87.6 Hypokalemia; E83.42 Hypomagnesemia; R56.9 Unspecified convulsions; G47.30 Sleep apnea, unspecified; F17.200 Nicotine dependence, unspecified, uncomplicated; Z79.899 Other long term (current) drug therapy
CPT/HCPCS: 71045; 73060; 73090; 80048; 80307; 83605; 83735; 84484; 85025; 85610; 85730; 87040; 93005; 96365; 96366; 96368; 96375; 99285; J1885; J3411; J3475; J7030

== ENCOUNTER 2017-12-02 15:48 | Emergency (ER) | payer SELFPAY ==
[~2017-12-02 15:48] MED LIST changes: -AMOX500T PO; +CLIN300C5 PO; +TYLE325T PO
[2017-12-02 16:17] VITALS: BP 121/77; PULSE 127; RESP 18; TEMP 98.2; O2SAT 97
--- NOTE | 2017-12-02 17:37 | PD ---
HPI Chief Complaint: Skin Problem Time Seen by Provider: 17:09 Travel History International Travel<30 days: No Contact w/Intl Traveler<30days: No Traveled to known affect area: No History of Present Illness HPI 42-year-old male came to the emergency room with history of left forearm cellulitis that was diagnosed 4 days ago. Patient was in the emergency room at that time to be seen for the exact same thing. Patient has history of bad dermatitis. Patient says that he never filled the prescription that was given to him 4 days ago since he does not have any money. The prescription that was given was for clindamycin. Patient is not allergic to any medications. Vital signs are stable. PFSH Past Medical History Narrative Medical List of his past medical, surgical, social and family history reviewed from the nursing note. Hx Anticoagulant Therapy: No Diabetes: No Diminished Hearing: No Seizures: Yes Sleep Apnea: Yes Tetanus Vaccination: Unknown Influenza Vaccination: No Past Surgical History Appendectomy: Yes Other Surgery: Yes (AMPUTATION OF 2ND DIGIT OF LEFT HAND) Social History Alcohol Use: Yes (DAILY) Tobacco Use: Yes ( 1ppd) Substance Use: No ( ) Allergies-Medications (Allergen,Severity, Reaction): Coded Allergies: No Known Allergies (Verified Adverse Reaction, Unknown, 12/02/17) Comments No known drug allergies. Reported Meds & Prescriptions Reported Meds & Active Scripts Active Bactrim DS (Sulfamethoxazole-Trimethoprim) 800-160 Mg Tab 1 Tab PO BID Tylenol (Acetaminophen) 325 Mg Tab 650 Mg PO Q6H PRN Clindamycin (Clindamycin HCl) 300 Mg Cap 300 Mg PO Q6H 10 Days Narrative Medication List of his home medications reviewed from the nursing note. Review of Systems Except as stated in HPI: all other systems reviewed are Neg Physical Exam Narrative GENERAL: Awake, alert, no obvious distress SKIN: Focused skin assessment warm/dry. Generalized excoriation of the skin probably from eczema or psoriasis. Left forearm proximal one third medially has honey crusted excoriated lesion that seems like impetigo. The surface area is about 5 x 7 cm HEAD: Atraumatic. Normocephalic. EYES: Pupils equal and round. No scleral icterus. No injection or drainage. ENT: No nasal bleeding or discharge. Mucous membranes pink and moist. NECK: Trachea midline. No JVD. CARDIOVASCULAR: Regular rate and rhythm. No murmur appreciated. RESPIRATORY: No accessory muscle use. Clear to auscultation. Breath sounds equal bilaterally. GASTROINTESTINAL: Abdomen soft, non-tender, nondistended. Hepatic and splenic margins not palpable. MUSCULOSKELETAL: No obvious deformities. No clubbing. No cyanosis. No edema. NEUROLOGICAL: Awake and alert. No obvious cranial nerve deficits. Motor grossly within normal limits. Normal speech. PSYCHIATRIC: Appropriate mood and affect; insight and judgment normal. Data Data Last Documented VS Vital Signs Date Time Temp Pulse Resp B/P (MAP) Pulse Ox O2 Delivery O2 Flow Rate FiO2 12/02/17 16:17 98.2 127 18 121/77 (92) 97 Orders Orders Sulfamet-Trimeth Ds 800-160 Mg (Bactrim (12/02/17 17:45) Ed Discharge Order (12/02/17 17:43) [facility] Medical Decision Making Medical Screen Exam Complete: Yes Emergency Medical Condition: Yes Medical Record Reviewed: Yes Differential Diagnosis Impetigo Narrative Course 5:50 PM patient never had his prescription filled and hence I do not expect the condition to get better. However since patient does not have insurance and is incapable of pain out of pocket for the antibiotic of changed to Bactrim which is supposed to be free of cost. I have been giving him a dose here. The nurse will repeat the vital signs but if the heart rate is less than what it was in triage patient will be discharged home. He did not appear toxic to me. Procedures EKG Prior to Arrival: No Diagnosis Primary Impression: History of medication noncompliance Additional Impression: Impetigo Additional Instructions: Please get this prescription filled. This antibiotic should be free of cost at [facility] or [facility]. You must take the antibiotic in order to get better. If in spite of taking the antibiotic your symptoms do not resolve and worsen the knee need to come back to the emergency room. Med/Other Pt SpecificInfo: Prescription(s) given Scripts Sulfamethoxazole-Trimethoprim (Bactrim DS) 800-160 Mg Tab 1 TAB PO BID for Infection, #20 TAB 0 Refills Prov: Concepción Duvall MD 12/02/17 Disposition: 01 DISCHARGE HOME Condition: Stable Concepción Duvall MD Dec 02, 2017 17:37
[2017-12-02] MEDS ORDERED: BACT800T5 PO (17:41)
[2017-12-02] MEDS ORDERED: SULFAMETHOXAZOLE-TRIMETHOPRIM DS 800-160 MG TAB PO ONE (17:45)
[2017-12-02 18:05] VITALS: BP 137/99; PULSE 90; RESP 16; O2SAT 100
== END 2017-12-02 18:06 | disposition home or self-care (01) ==
LOC: NEPD 15:48
DX: L01.00 Impetigo, unspecified (principal); F17.210 Nicotine dependence, cigarettes, uncomplicated; Z91.14 Patient's other noncompliance with medication regimen
CPT/HCPCS: 99283

== ENCOUNTER 2018-05-31 08:17 | Inpatient (IN) ==
[2018-05-31] MEDS: Sod Chloride 0.9% Inj 1,000 ML IV.SIG SCH ×2 (09:08→09:49)
--- NOTE | 2018-05-31 09:16 | XR ---
EXAM DATE: 05/31/2018 9:09 AM EDT AGE/SEX: 42 years / Male INDICATIONS: Shortness of breath, nausea and fever. CLINICAL DATA: This is the patient's initial encounter. Patient reports that signs and symptoms have been present for 3 days and indicates a pain score of 0/10. MEDICAL/SURGICAL HISTORY: None. None. COMPARISON: [facility] – [place], CHEST SINGLE AP, 11/28/2017. . FINDINGS: Right lung is clear. Streaky density at the left base may be related to mild atelectasis or developin g airspace disease. The heart size is normal. The osseous structures are intact. CONCLUSION: Left lower lobe density as above likely mild atelectasis or developing airspace disease.. Electronically signed by: Sohail Quinones MD 05/31/2018 9:15 AM EDT
[2018-05-31 09:18] LABS: Chloride 93 meq/L (98-107); Potassium 3.3 meq/L (3.5-5.1); Sodium 129 meq/L (136-145)
[2018-05-31 09:33] LABS: Baso % (Auto) 0.5 % (0.0-2.0); Eos % (Auto) 0.1 % (0.0-4.0); Hematocrit 29.6 % (39.0-51.0); Hemoglobin 9.8 gm/dL (13.0-17.0); Lymph # (Auto) 0.7 th/mm3 (1.0-4.8); Lymph % (Auto) 11.6 % (9.0-44.0); Mean Corpuscular HGB Conc 33.1 % (32.0-36.0); Mean Corpuscular Hemoglobin 30.5 pg (27.0-34.0); Mean Platelet Volume 8.4 fL (7.0-11.0); Mono # (Auto) 0.7 th/mm3 (0.0-0.9); Mono % (Auto) 12.7 % (0.0-8.0); Neut # (Auto) 4.5 th/mm3 (1.8-7.7); Neut % (Auto) 75.1 % (16.0-70.0); Red Blood Count 3.22 mil/mm3 (4.50-5.90); Red Cell Distribution Width 16.5 % (11.6-17.2); White Blood Count 5.9 th/mm3 (4.0-11.0)
[2018-05-31 09:36] LABS: Platelet Count 75 th/mm3 (150-450)
[2018-05-31 09:43] LABS: Calcium 8.4 mg/dL (8.5-10.1)
[2018-05-31 09:44] LABS: Albumin 2.8 g/dL (3.4-5.0); Anion Gap 11 meq/L (5-15); Carbon Dioxide 24.7 meq/L (21.0-32.0); Glucose,Random 103 mg/dL (74-106)
[2018-05-31 09:47] LABS: Alanine Aminotransferase 31 U/L (12-78); Glomerular Filtration Rate Greater Than 89 mL/min (>89)
[2018-05-31 09:49] LABS: Total Protein 8.4 g/dL (6.4-8.2)
--- NOTE | 2018-05-31 09:49 | ED ---
HPI General Chief complaint: Nausea/Vomiting/Diarrhea Stated complaint: congestion/Nausea/Vomiting Source: patient Mode of arrival: ambulatory Limitations: no limitations History of Present Illness complaint: nausea, vomiting and diarrhea Onset (ago): day(s) (5) Description of Vomiting: food contents (Approximately 5 episodes a day) Description of Diarrhea: watery and other (Approximately 10 episodes per day of brown, watery diarrhea) Associated Abdominal Pain: No Severity scale (1-10): 5 Relieving factors: none Exacerbating factors: none Context: other (Concomitant cold symptoms including nasal congestion, sore throat and earache) Associated symptoms: myalgias and cough Related Data Home Medications Medication Instructions Recorded Confirmed No Known Home Medications 05/31/18 05/31/18 Allergies Allergy/AdvReac Type Severity Reaction Status Date / Time No Known Allergies Allergy Verified 05/31/18 08:37 Review of Systems ROS: all other systems reviewed are negative [facility] Medical History Medical History Finger amputation, no complication (Acute) Seizures (Acute) Surgical History Surgical History Hx of appendectomy (Acute) Hx of tonsillectomy (Acute) Social History Social History Substance History: No History of Abuse Second Hand Smoke Exposure: No Smoking Status: Current every day smoker Tobacco Type: Cigarettes How Often Do You Have a Drink Containing Alcohol: 4 or more times a week Recent Travel in [facility] within the Last 8 Weeks: No Recent Out of Country Travel within the Last 8 Weeks: No Immunization History Tetanus Immunization: Unsure Hx Influenza Vaccine This Season: No Exam Const General: cooperative, healthy appearing, comfortable, no acute distress, well developed and well groomed Orientation: alert, awake and oriented x3 HENMT Head: normal to inspection, normocephalic and atraumatic Ears: external ears normal, TM normal on the right and EAC abnormal cerumen impaction on the left Mouth: moist mucous membranes Teeth and gingiva: caries Throat: posterior oropharynx normal Eyes Conjunctivae: conjunctivae normal Sclera: sclerae normal EOM: EOM intact bilaterally Neck Neck: normal visual inspection and full ROM Chest Chest: normal inspection of the chest Resp Effort & Inspection: normal respiratory effort and able to speak in complete sentences Auscultation: clear to auscultation bilaterally Cardio Rate: tachycardic (120) Rhythm: regular rhythm GI Inspection: normal to inspection Palpation: soft and nontender Back/Spine/Pelvis Cervical Spine: cervical ROM normal Thoracic/Lumbar Spine: thoraco-lumbar ROM normal Skin General: no rashes or lesions noted and turgor normal Neuro General: alert, awake, oriented x3, moves all extremities and CN's II-XI intact bilaterally Extrem General: normal to inspection and full ROM Psych Appearance: grossly normal Mental Status: mental status grossly normal Speech and Movement: speech and movement normal Mood: congruent mood Affect: normal affect Attitude: cooperative Thought Process: normal Thought Content: normal Judgment: judgment good Course Hospital Course: The patient remained tachycardic following 2 L of IV fluids. He has been empirically treated with Rocephin and Zithromax for pneumonia. Consultations Consultation #1: Dr. Stanley will admit Time: 10:45 Initial Documented Vital Signs Temperature 97.8 F 05/31/18 08:21 Pulse Rate 120 H 05/31/18 08:21 Respiratory Rate 22 05/31/18 08:21 Blood Pressure 116/73 05/31/18 08:21 Pulse Oximetry 94 L 05/31/18 08:21 Last Documented Vital Signs Temperature 97.8 F 05/31/18 08:21 Pulse Rate 103 H 05/31/18 09:50 Respiratory Rate 20 05/31/18 09:50 Blood Pressure 118/81 05/31/18 09:50 Pulse Oximetry 98 05/31/18 09:50 Medical Decision Making [facility] Narrative Medical decision making narrative: This patient presents with a 5 day history vomiting and diarrhea. He is tachycardic at presentation. In addition, he has some respiratory symptoms including nasal congestion, sore throat and cough. He meets SIRS criteria in that he is tachycardic and tachypneic. Septic workup has been initiated. He will initially be treated with 2 L of fluid. Further treatment will depend upon his laboratory studies. CRITICAL CARE Time to perform other separately billable procedures was not included in the critical care time. My time did not include minutes spent treating any other patients simultaneously or on activities that did not directly contribute to the patient's treatment. The services I provided to this patient were to treat and/or prevent clinically significant deterioration due to sepsis I provided critical care services requiring my management, as noted below: Chart data review, documentation time, medication orders and management, vital sign assessments/reviewing monitor data, ordering and reviewing lab tests, ordering and interpreting/reviewing x-rays and diagnostic studies, care of the patient and discussion of the patient with the admitting physicians Total critical care time was 30 minutes Medical Screen Exam Complete: Yes Emergency Medical Condition: Yes Differential Diagnosis Differential Diagnosis: Differential diagnosis of diarrhea includes but is not limited to viral enteritis, bacterial enteritis, antibiotic induced diarrhea, irritable bowel syndrome, bowel obstruction Lab Data Lab results reviewed: Yes I reviewed the patient's lab results. Lab results narrative: He meets sepsis criteria. Result diagrams: 05/31/18 09:00 05/31/18 09:00 Lab Results 05/31/18 05/31/18 05/31/18 Range/Units 09:00 09:00 09:00 CBC w Diff Slide review pending WBC 5.9 (4.0-11.0) th/mm3 RBC 3.22 L (4.50-5.90) mil/mm3 Hgb 9.8 L (13.0-17.0) gm/dL Hct 29.6 L (39.0-51.0) % MCV 92.0 (80.0-100.0) fL MCH 30.5 (27.0-34.0) pg MCHC 33.1 (32.0-36.0) % RDW 16.5 (11.6-17.2) % Plt Count 75 L (150-450) th/mm3 MPV 8.4 (7.0-11.0) fL Neut % (Auto) 75.1 H (16.0-70.0) % Lymph % (Auto) 11.6 (9.0-44.0) % [place] % (Auto) 12.7 H (0.0-8.0) % Eos % (Auto) 0.1 (0.0-4.0) % Baso % (Auto) 0.5 (0.0-2.0) % Neut # (Auto) 4.5 (1.8-7.7) th/mm3 Lymph # (Auto) 0.7 L (1.0-4.8) th/mm3 [place] # (Auto) 0.7 (0.0-0.9) th/mm3 Eos # (Auto) 0.0 (0.0-0.4) th/mm3 Baso # (Auto) 0.0 (0.0-0.2) th/mm3 WBC Differential . Diff Scan Auto diff confirmed Differential Comment . Platelet Estimate Low L (Normal) Platelet Morphology Normal (Normal) RBC Morphology Normal (Normal) Sodium 129 L (136-145) meq/L Potassium 3.3 L (3.5-5.1) meq/L Chloride 93 L (98-107) meq/L Carbon Dioxide 24.7 (21.0-32.0) meq/L Anion Gap 11 (5-15) meq/L BUN 8 (7-18) mg/dL Creatinine 0.58 L (0.60-1.30) mg/dL Estimated GFR Greater than 89 (>89) mL/min POC Glucose (68-110) mg/dl Random Glucose 103 (74-106) mg/dL Lactic Acid 3.3 H (0.4-2.0) mmol/L Calcium 8.4 L (8.5-10.1) mg/dL Total Bilirubin 2.1 H (0.2-1.0) mg/dL AST 62 H (15-37) U/L ALT 31 (12-78) U/L Alkaline Phosphatase 101 (45-117) U/L Total Protein 8.4 H (6.4-8.2) g/dL Albumin 2.8 L (3.4-5.0) g/dL Ur Collection Type Urine Color (Yellw/Straw) Urine Clarity (Clear) Urine pH (5.0-8.5) Ur Specific [place] (1.002-1.035) Urine Protein (Neg-Trace) mg/dL Urine Glucose (UA) (Negative) mg/dL Urine Ketones (Negative) mg/dL Urine Occult Blood (Negative) Urine Nitrate (Negative) Urine Bilirubin (Negative) Urine Urobilinogen (Less than 2) mg/dL Ur Leukocyte Esterase (Negative) Ur Squamous Epith Cells (0-5) /hpf Ur Transition Epith Cell (None) /hpf Amorphous Sediment (None) /hpf Micro UA Comment Ur Microscopic Review Urine Culture Comments Urine Collection Time hours 05/31/18 05/31/18 Range/Units 09:09 10:10 CBC w Diff WBC (4.0-11.0) th/mm3 RBC (4.50-5.90) mil/mm3 Hgb (13.0-17.0) gm/dL Hct (39.0-51.0) % MCV (80.0-100.0) fL MCH (27.0-34.0) pg MCHC (32.0-36.0) % RDW (11.6-17.2) % Plt Count (150-450) th/mm3 MPV (7.0-11.0) fL Neut % (Auto) (16.0-70.0) % Lymph % (Auto) (9.0-44.0) % [place] % (Auto) (0.0-8.0) % Eos % (Auto) (0.0-4.0) % Baso % (Auto) (0.0-2.0) % Neut # (Auto) (1.8-7.7) th/mm3 Lymph # (Auto) (1.0-4.8) th/mm3 [place] # (Auto) (0.0-0.9) th/mm3 Eos # (Auto) (0.0-0.4) th/mm3 Baso # (Auto) (0.0-0.2) th/mm3 WBC Differential Diff Scan Differential Comment Platelet Estimate (Normal) Platelet Morphology (Normal) RBC Morphology (Normal) Sodium (136-145) meq/L Potassium (3.5-5.1) meq/L Chloride (98-107) meq/L Carbon Dioxide (21.0-32.0) meq/L Anion Gap (5-15) meq/L BUN (7-18) mg/dL Creatinine (0.60-1.30) mg/dL Estimated GFR (>89) mL/min POC Glucose 108 (68-110) mg/dl Random Glucose (74-106) mg/dL Lactic Acid (0.4-2.0) mmol/L Calcium (8.5-10.1) mg/dL Total Bilirubin (0.2-1.0) mg/dL AST (15-37) U/L ALT (12-78) U/L Alkaline Phosphatase (45-117) U/L Total Protein (6.4-8.2) g/dL Albumin (3.4-5.0) g/dL Ur Collection Type Clean catch Urine Color Yellow (Yellw/Straw) Urine Clarity Clear (Clear) Urine pH 6.0 (5.0-8.5) Ur Specific [place] Less/equal 1.005 (1.002-1.035) Urine Protein Negative (Neg-Trace) mg/dL Urine Glucose (UA) Negative (Negative) mg/dL Urine Ketones Negative (Negative) mg/dL Urine Occult Blood Negative (Negative) Urine Nitrate Negative (Negative) Urine Bilirubin Negative (Negative) Urine Urobilinogen 2.0 H (Less than 2) mg/dL Ur Leukocyte Esterase Negative (Negative) Ur Squamous Epith Cells 6-10 H (0-5) /hpf Ur Transition Epith Cell 1-5 H (None) /hpf Amorphous Sediment Few H (None) /hpf Micro UA Comment Culture not ind Ur Microscopic Review Microscopic reviewed Urine Culture Comments Culture not ind Urine Collection Time 1010 hours Imaging Data Attestation: I personally reviewed and interpreted this imaging study as follows : Radiologist's impression: Chest X-Ray 05/31/18 08:50 CONCLUSION: Left lower lobe density as above likely mild atelectasis or developing airspace disease.. ECG Data EKG Prior to Arrival: No Attestation: I personally reviewed and interpreted this ECG as follows: (EKG shows a sinus tachycardia with a rate of 103. No acute STT wave changes.) Discharge Plan Discharge Disposition Patient Disposition: 30 Still Patient Discharge Details Diagnosis: Sepsis, Pneumonia, Vomiting, Diarrhea Physicians Team ED Provider: Prisca Romero Primary Care Provider: NON STAFF,PROVIDER Attending Provider: Vic Stanley Status ED Status: Admitted Patient
[2018-05-31 09:50] LABS: Alkaline Phosphatase 101 U/L (45-117)
[2018-05-31 09:53] LABS: RBC Morphology Normal (Normal)
[2018-05-31 09:54] LABS: Platelet Morphology Normal (Normal)
[2018-05-31 09:59] LABS: Aspartate Aminotransferase 62 U/L (15-37); Blood Urea Nitrogen 8 mg/dL (7-18)
[2018-05-31 10:15] LABS: Bilirubin,Urine Negative (Negative); Clarity,Urine Clear (Clear); Color,Urine Yellow (Yellw/Straw); Glucose,Urine (UA) Negative (Negative); Leukocyte Esterase,Urine Negative (Negative); Nitrite,Urine Negative (Negative); Specific Gravity,Urine Less/Equal 1.005 (1.002-1.035)
[2018-05-31] MEDS ORDERED: Azithromycin Inj 500 MG in Sodium Chlor 0.9% Inj 250 ML IV.SIG ONE (10:16)
[2018-05-31 10:19] LABS: Collection Time,Urine 1010 hours
[2018-05-31 10:21] LABS: Amorphous Sediment,Urine Few /hpf
[2018-05-31] MEDS ORDERED: Acetaminophen 325 MG Tablet PO PRN (11:18)
[2018-05-31] MEDS ORDERED: Bisacodyl 10 MG Supp RECTAL PRN (11:18)
--- NOTE | 2018-05-31 12:28 | ECG ---
Date Performed: 05/31/2018 Time Performed: 09:00:35 PTAGE: 42 years EKG: SINUS TACHYCARDIA WITH SHORT [place] INTERVAL INCOMPLETE RIGHT BUNDLE BRANCH BLOCK ABNORMAL RHYT HM ECG Since the PREVIOUS TRACING , no significant change noted PREVIOUS TRACIN11/28/2017 11.39 DOCTOR: Laurie Cuello Interpretating Date/Time 05/31/2018 12:26:00
[2018-05-31] MEDS ORDERED: LORazepam 1 MG Tablet PO PRN (12:58)
--- NOTE | 2018-05-31 13:07 | P.HP ---
History of Present Illness Primary Care Physician: PROVIDER NON STAFF Chief Complaint: Nausea, vomiting, diarrhea History of Present Illness: 42-year-old male with known history of seizures, chronic alcoholism who presented the hospital because of 5 day history of nausea, vomiting, diarrhea. Patient indicates her last 5 days he has had difficulty with tolerate anything by mouth other than beer. Patient states that his appetite has significantly decreased. He has had abdominal discomfort which is diffuse after he vomits. He has not been able to really eat anything for the last 5 days. Indicates that he has gone down from drinking 18 beers a day down to 2 beers a day. Because the symptoms not resolve he came to emergency department for evaluation. Patient denies any hematemesis, shortness of breath, chest pain, fever, chills. Patient denies any sick exposures, denies any recent antibiotic use. Patient had workup done emergency department found to have multiple abnormalities to include lactic acidosis, tachycardia, electrolyte abnormalities , elevated liver enzymes x-ray indicating atelectasis versus developing infiltrate. Is recommended by ER physician the patient be admitted for sepsis. Patient does have history of chronic alcoholism. He does have withdrawal seizures. Significant other indicates that the patient has seizure 2 days ago at his sister's house. - Diagnosis (1) Sepsis (2) Pneumonia (3) Vomiting (4) Diarrhea (5) Lactic acidosis (6) Elevated liver enzymes Inpatient Certification: I certify that the inpatient services were ordered in accordance with Medicare regulations governing the order. This includes certification that hospital inpatient services are reasonable and necessary and in the case of services not specified as inpatient-only under 42 CFR 419.22(n), that they are appropriately provided as inpatient services in accordance to with the 2-midnight benchmark under 43 CFR 412.3(e) Estimated Total Length of Stay (Days): 3 Plans for Post Hospital Care: Home Review of Systems All other systems reviewed negative except as stated in HPI Gastrointestinal: Reports loose stools, Reports nausea, Reports vomiting PMFSH - History History Provided By: Patient, Friend - Medical History Medical History: Medical History (Last Reviewed 05/31/18 @ 13:25 by MARY Gray) Seizures - Surgical History Surgical History: Surgical History (Last Updated 05/31/18 @ 13:25 by MARY Gray) Finger amputation, no complication Hx of appendectomy Hx of tonsillectomy - Family History Family History: Family History (Last Updated 05/31/18 @ 13:25 by MARY Gray) Other No pertinent family history - Tobacco History Second Hand Smoke Exposure: No Tobacco Use In Past 30 Days: Yes Smoking Status: Current every day smoker Tobacco Type: Cigarettes Packs Per Day: 1 - Alcohol History How Often Do You Have a Drink Containing Alcohol: 4 or more times a week ( Patient drinks approximate 18 beers a day) - Substance Use History Substance History: No History of Abuse - Travel History Recent Travel in the [place] Within the Last 8 Weeks: No Recent Travel Out of the Country Within the Last 8 Weeks: No - Immunization History Tetanus Immunization: Unsure Hx Influenza Vaccine This Season: No Medications and Allergies Active Medications: Active Medications Acetaminophen (Tylenol) 650 mg PO Q4H PRN PRN Reason: Headache, fever, pain 1-5 Al Hydroxide/Mg Hydroxide (Milk Of Magnesia Liq) 30 ml PO Q12H PRN PRN Reason: Mild Constipation Albuterol (Duoneb Neb (Prn)) 1 ampul NEB Q4HR NEB PRN PRN Reason: DYSPNEA Bisacodyl (Dulcolax Supp) 10 mg RECTAL DAILY PRN PRN Reason: SEVERE CONSITIPATION Sodium Chloride (Ns Inj) 1,000 mls @ 0 mls/hr IV.SIG BOLUS MARK Stop: 06/01/18 09:01 Last Infusion: 05/31/18 10:27 Dose: Infused Lactulose (Lactulose Liq) 30 ml PO DAILY PRN PRN Reason: SEVERE CONSITIPATION Levofloxacin (Levaquin) 750 mg PO DAILY MARK Ondansetron HCl (Zofran Inj) 4 mg IV.PUSH Q6H PRN PRN Reason: NAUSEA OR VOMITING Sennosides (Senokot) 17.2 mg PO Q12H PRN PRN Reason: Moderate Constipation Allergies Allergy/AdvReac Type Severity Reaction Status Date / Time No Known Allergies Allergy Verified 05/31/18 08:37 Home Medications Medication Instructions Recorded Confirmed Type No Known Home Medications 05/31/18 05/31/18 History Exam Vital signs: Vital Signs 05/31/18 08:21 05/31/18 09:12 05/31/18 09:22 Temperature 97.8 F Pulse Rate 120 H 119 H Respiratory Rate 22 18 Blood Pressure 116/73 133/84 Pulse Oximetry 94 L 96 96 05/31/18 09:50 05/31/18 12:07 05/31/18 12:20 Temperature 98.4 F Pulse Rate 103 H 111 H 110 H Respiratory Rate 20 20 20 Blood Pressure 118/81 108/61 112/82 Pulse Oximetry 98 97 Intake & Output 05/30/18 05/31/18 05/31/18 18:59 06:59 18:59 Intake Total 2099 Balance 2099 Weight 62 kg Intake: IV 2099 NS Inj 1,000 ML @ Wide Open IV. 1999 SIG BOLUS MARK Rx#:[id number] Rocephin Inj 2,000 MG In NS Inj 100 / 100 100 ML @ 200 mls/hr IV.SIG ONCE ONE Rx#:[id number] Narrative: GENERAL: Well-developed, well-nourished, in no acute distress. alert and orientated HEENT: Head is normocephalic without any lesions or masses noted. Facial features are symmetric. Eyes: Pupils equal round reactive to light. Extraocular muscles are intact. Conjunctivae were clear. Oropharyngeal: Pharynx without any erythema edema. Tongue is midline without deviation. Buccal mucosa is moist without any masses or lesions NECK: Supple without any masses. Trachea midline no deviation. No JVD, no bruits are appreciated CARDIAC: Regular rhythm, regular rate. S1/S2 are heard. No murmurs gallops or rubs. LUNGS: Clear to auscultation bilaterally. No wheeze, rhonchi or rales. No use of accessory muscles on inspiration or expiration. ABDOMEN: Soft, nontender. Nondistended. Bowel sounds heard in all 4 quadrants. No organomegaly or masses. Negative rebound, negative guarding EXTREMITIES: No edema, pulses are equal bilaterally. No cyanosis or clubbing NEUROLOGY: Mood and affect appear appropriate. Cranial nerves II through XII grossly intact. Muscle strength 5/5 in upper and lower extremities bilaterally. Deep tendon reflexes are 2+ in upper and lower extremities bilaterally. Results - Labs CBC & Chem 7: 05/31/18 09:00 05/31/18 09:00 Labs: Laboratory Results - last 24 hr 05/31/18 05/31/18 05/31/18 09:00 09:00 09:00 CBC w Diff Slide review pending WBC 5.9 RBC 3.22 L Hgb 9.8 L Hct 29.6 L MCV 92.0 MCH 30.5 MCHC 33.1 RDW 16.5 Plt Count 75 L MPV 8.4 Neut % (Auto) 75.1 H Lymph % (Auto) 11.6 [place] % (Auto) 12.7 H Eos % (Auto) 0.1 Baso % (Auto) 0.5 Neut # (Auto) 4.5 Lymph # (Auto) 0.7 L [place] # (Auto) 0.7 Eos # (Auto) 0.0 Baso # (Auto) 0.0 WBC Differential . Diff Scan Auto diff confirmed Differential Comment . Platelet Estimate Low L Platelet Morphology Normal RBC Morphology Normal Sodium 129 L Potassium 3.3 L Chloride 93 L Carbon Dioxide 24.7 Anion Gap 11 BUN 8 Creatinine 0.58 L Estimated GFR Greater than 89 POC Glucose Random Glucose 103 Lactic Acid 3.3 H Calcium 8.4 L Total Bilirubin 2.1 H AST 62 H ALT 31 Alkaline Phosphatase 101 Total Protein 8.4 H Albumin 2.8 L Ur Collection Type Urine Color Urine Clarity Urine pH Ur Specific [place] Urine Protein Urine Glucose (UA) Urine Ketones Urine Occult Blood Urine Nitrate Urine Bilirubin Urine Urobilinogen Ur Leukocyte Esterase Ur Squamous Epith Cells Ur Transition Epith Cell Amorphous Sediment Micro UA Comment Ur Microscopic Review Urine Culture Comments Urine Collection Time 05/31/18 05/31/18 05/31/18 09:09 10:10 12:00 CBC w Diff WBC RBC Hgb Hct MCV MCH MCHC RDW Plt Count MPV Neut % (Auto) Lymph % (Auto) [place] % (Auto) Eos % (Auto) Baso % (Auto) Neut # (Auto) Lymph # (Auto) [place] # (Auto) Eos # (Auto) Baso # (Auto) WBC Differential Diff Scan Differential Comment Platelet Estimate Platelet Morphology RBC Morphology Sodium Potassium Chloride Carbon Dioxide Anion Gap BUN Creatinine Estimated GFR POC Glucose 108 Random Glucose Lactic Acid 2.9 H Calcium Total Bilirubin AST ALT Alkaline Phosphatase Total Protein Albumin Ur Collection Type Clean catch Urine Color Yellow Urine Clarity Clear Urine pH 6.0 Ur Specific [place] Less/equal 1.005 Urine Protein Negative Urine Glucose (UA) Negative Urine Ketones Negative Urine Occult Blood Negative Urine Nitrate Negative Urine Bilirubin Negative Urine Urobilinogen 2.0 H Ur Leukocyte Esterase Negative Ur Squamous Epith Cells 6-10 H Ur Transition Epith Cell 1-5 H Amorphous Sediment Few H Micro UA Comment Culture not ind Ur Microscopic Review Microscopic reviewed Urine Culture Comments Culture not ind Urine Collection Time 1010 - Imaging Impressions Chest X-Ray 05/31/18 08:50 CONCLUSION: Left lower lobe density as above likely mild atelectasis or developing airspace disease.. Caprini VTE Risk Assessment Caprini VTE Risk Assessment: No/Low Risk (score <= 1) Caprini Risk Assessment Model: Point Value = 1 Point Value = 2 Point Value = 3 Point Value = 5 Age 41-60 Minor surgery BMI > 25 kg/m2 Swollen legs Varicose veins or History of unexplained or recurrent spontaneous Oral contraceptives or hormone replacement Sepsis (< 1 month) Serious lung disease, including pneumonia (< 1 month) Abnormal pulmonary function Acute myocardial infarction Congestive heart failure (< 1 month) History of inflammatory bowel disease Medical patient at bed rest Age 61-74 Arthroscopic surgery Major open surgery (> 45 min) Laparoscopic surgery (> 45 min) Malignancy Confined to bed (> 72 hours) Immobilizing plaster cast Central venous access Age >= 75 History of VTE Family history of VTE Factor V Leiden Prothrombin [id number] Lupus anticoagulant Anticardiolipin antibodies Elevated serum homocysteine Heparin-induced thrombocytopenia Other congenital or acquired thrombophilia Stroke (< 1 month) Elective arthroplasty Hip, pelvis, or leg fracture Acute spinal cord injury (< 1 month) Prophylaxis Regimen: Total Risk Factor Score Risk Level Prophylaxis Regimen 0-1 Low Early ambulation 2 Moderate Order ONE of the following: *Sequential Compression Device (SCD) *Heparin 5000 units SQ BID 3-4 Higher Order ONE of the following medications: *Heparin 5000 units SQ TID *Enoxaparin/Lovenox 40 mg SQ daily (WT < 150 kg, CrCl > 30 mL/min) *Enoxaparin/Lovenox 30 mg SQ daily (WT < 150 kg, CrCl > 10-29 mL/min) *Enoxaparin/Lovenox 30 mg SQ BID (WT < 150 kg, CrCl > 30 mL/min) AND/OR *Sequential Compression Device (SCD) 5 or more Highest Order ONE of the following medications: *Heparin 5000 units SQ TID (Preferred with Epidurals) *Enoxaparin/Lovenox 40 mg SQ daily (WT < 150 kg, CrCl > 30 mL/min) *Enoxaparin/Lovenox 30 mg SQ daily (WT < 150 kg, CrCl > 10-29 mL/min) *Enoxaparin/Lovenox 30 mg SQ BID (WT < 150 kg, CrCl > 30 mL/min) AND *Sequential Compression Device (SCD) Assessment and Plan - Assessment (1) Sepsis Code(s): A41.9 - Sepsis, unspecified organism Status: Acute (2) Pneumonia Code(s): J18.9 - Pneumonia, unspecified organism Status: Acute (3) Vomiting Code(s): R11.10 - Vomiting, unspecified Status: Acute (4) Diarrhea Code(s): R19.7 - Diarrhea, unspecified Status: Acute (5) Lactic acidosis Code(s): E87.2 - Acidosis Status: Acute (6) Elevated liver enzymes Code(s): R74.8 - Abnormal levels of other serum enzymes Status: Acute - Plan Sepsis -Patient meets criteria with tachycardia, lactic acidosis, possible pneumonia, diarrheal illness, elevated liver enzymes -Patient started on Rocephin, Zithromax -Chest x-ray does indicate possible atelectasis versus developing infiltrate -Urinalysis was unremarkable -We will need to obtain stool studies to include WBC, enteric pathogen, C. difficile -We will need to evaluate CT of the abdomen to rule out any hepatic etiology secondary to elevated liver enzymes, will also obtain hepatitis profile -Blood cultures have been ascertained Nausea, vomiting, diarrhea with associated elevated liver enzymes -Possible gastroenteritis but hepatitis needs to be ruled out as well as possible gallbladder abnormality -Check lipase level -Continue IV fluids -Continue antiemetic Possible developing infiltrate versus atelectasis by x-ray -Continue O2 supplementation to maintain O2 sats greater than 90% -Continue empiric antibiotics to cover for community acquired pneumonia -Incentive spirometry Alcohol abuse -We will need to monitor for withdrawal symptoms -CIWA protocol -Start thiamine and folic acid electrolyte abnormalities with hyponatremia, hypokalemia -Continue monitor and replete as needed DVT prevention -Sequential compression devices Addendum: Patient had alcohol withdrawal seizure witnessed by multiple personnel. Patient was given Ativan 4 mg IV, Helicat was called, patient transferred to the ICU for more intensive care and closer monitoring. Patient continues on CIWA protocol. Patient did not lose any control of bowel or bladder. However patient was postictal. Critical care management: 35 minutes excluding procedures
[2018-05-31] MEDS ORDERED: Diatrizoate Meglum/Diatrizoate Sod Liq 9 ML UDC PO ONE (13:15)
[2018-05-31] MEDS: Folic Acid 1 MG Tablet PO SCH (13:21)
[2018-05-31 16:32] LABS: Hepatitis A IgM Antibody Nonreactive (Nonreactive); Hepatitits B Surface Antigen Nonreactive (Nonreactive)
--- NOTE | 2018-05-31 22:11 | CT ---
EXAM DATE: 05/31/2018 10:02 PM EDT AGE/SEX: 42 years / Male INDICATIONS: Elevated liver enzymes with nausea and vomiting. CLINICAL DATA: This is the patient's initial encounter. Patient reports that signs and symptoms have been present for 4 - 6 days and indicates a pain score of 0/10. MEDICAL/SURGICAL HISTORY: Seizures. Appendectomy. RADIATION DOSE: 8.23 CTDI (mGy) COMPARISON: No prior exams available for comparison. TECHNIQUE: Multiple contiguous axial images were obtained through the abdomen. Images were obtained using multiple row detector helical technique. Using automated exposure control and adjustment of the mA and/or kV according to patient size, radiation dose was kept as low as reasonably achievable to o btain optimal diagnostic quality images. DICOM format image data is available electronically for rev iew and comparison. FINDINGS: Abdomen CT: The pancreas, kidneys, adrenals are unremarkable. Spleen measures 12.8 cm in clinical dimension. The liver is fatty and the left hepatic lobe is enlarged measures almost 14.8 cm in size. There is no sae dence for any appreciable pathological adenopathy, free fluid, or bowel obstruction. Significant airs pace process left lower lobe most likely pneumonia. There is minimal infiltrate right middle lobe. Th e transverse process of L1 is not fused on the right side could be due to old trauma or on a congenit al basis. Pelvic CT: There is no evidence for mass, abscess formation, or any significant adenopathy within the pelvis. CONCLUSION: 1. Left lower lobe pneumonia. 2. Fatty liver and splenomegaly. Electronically signed by: Debra Chopra MD 05/31/2018 10:09 PM EDT
[2018-06-01] MEDS ORDERED: Chlorhexidine Gluconate 2% 1 Pack (2 Cloths) TOPICAL PRN (04:00)
[2018-06-01 05:09] LABS: Baso % (Auto) 0.5 % (0.0-2.0); Eos % (Auto) 0.7 % (0.0-4.0); Hematocrit 26.1 % (39.0-51.0); Hemoglobin 8.4 gm/dL (13.0-17.0); Lymph # (Auto) 0.6 th/mm3 (1.0-4.8); Lymph % (Auto) 16.5 % (9.0-44.0); Mean Corpuscular Hemoglobin 30.3 pg (27.0-34.0); Mean Corpuscular Volume 94.6 fL (80.0-100.0); Mean Platelet Volume 8.2 fL (7.0-11.0); Mono # (Auto) 0.5 th/mm3 (0.0-0.9); Mono % (Auto) 12.6 % (0.0-8.0); Neut # (Auto) 2.8 th/mm3 (1.8-7.7); Neut % (Auto) 69.7 % (16.0-70.0); Platelet Count 58 th/mm3 (150-450); Red Blood Count 2.76 mil/mm3 (4.50-5.90); Red Cell Distribution Width 15.9 % (11.6-17.2); White Blood Count 3.9 th/mm3 (4.0-11.0)
[2018-06-01 05:22] LABS: Chloride 104 meq/L (98-107); Potassium 3.2 meq/L (3.5-5.1); Sodium 139 meq/L (136-145)
[2018-06-01 05:25] LABS: RBC Morphology Normal (Normal)
[2018-06-01 05:28] LABS: Alanine Aminotransferase 23 U/L (12-78); Albumin 2.1 g/dL (3.4-5.0); Anion Gap 11 meq/L (5-15); Aspartate Aminotransferase 37 U/L (15-37); Blood Urea Nitrogen 5 mg/dL (7-18); Carbon Dioxide 23.9 meq/L (21.0-32.0); Glomerular Filtration Rate Greater Than 89 mL/min (>89); Glucose,Random 77 mg/dL (74-106)
[2018-06-01 05:30] LABS: Total Protein 6.6 g/dL (6.4-8.2)
[2018-06-01 05:33] LABS: Alkaline Phosphatase 73 U/L (45-117)
[2018-06-01] MEDS ORDERED: Potassium Chlor 40 mEq Premix 40 MEQ/100 ML PIGGYBACK IV.SIG PRN ×2 (05:36)
[2018-06-01] MEDS ORDERED: Magnesium Sulfate Inj 2 GM in Sodium Chlor 0.9% Inj 96 ML IV.SIG PRN (05:36)
[2018-06-01] MEDS ORDERED: Potassium Phosphate Inj 30 MMOL in Sodium Chlor 0.9% Inj 250 ML IV.SIG PRN (05:36)
[2018-06-01] MEDS ORDERED: Sodium Phosphate Inj 30 MMOL in Sodium Chlor 0.9% Inj 250 ML IV.SIG PRN (05:36)
[2018-06-01] MEDS ORDERED: Potassium Chlor 20 mEq Premix 20 MEQ/100 ML PIGGYBACK IV.SIG PRN (05:36)
[2018-06-01] MEDS ORDERED: Potassium Chloride 25 MEQ Effervescent Tablet PO PRN (05:36)
[2018-06-01] MEDS ORDERED: Potassium Phosphate 500 MG Soluble Tablet PO PRN ×2 (05:36)
[2018-06-01] MEDS ORDERED: Magnesium Oxide 400 MG Tablet PO PRN (05:36)
[2018-06-01] MEDS ORDERED: Calcium Gluconate Inj 1 GM in Dextrose 5% in Water Inj 100 ML IV.SIG ONE ×2 (05:38)
[2018-06-01] MEDS: Chlorhexidine Gluconate 2% 1 Pack (2 Cloths) TOPICAL SCH (05:57)
[2018-06-01] MEDS: Potassium Chlor 20 mEq Premix 20 MEQ/100 ML PIGGYBACK IV.SIG PRN ×4 (07:54→14:33)
[2018-06-01] MEDS: Folic Acid 1 MG Tablet PO SCH (08:02)
[2018-06-01] MEDS ORDERED: levoFLOXacin 750 MG Tablet PO SCH (09:00)
--- NOTE | 2018-06-01 17:07 | P.PN ---
Subjective Interval history: Follow up for alcohol withdrawal and alcohol withdrawal seizure. Patient is currently doing well. No acute concerns. No further episodes of seizure activities. Physical Exam Vital signs: Vital Signs 05/31/18 18:00 05/31/18 19:00 05/31/18 19:50 Temperature Pulse Rate 102 H 102 H Respiratory Rate 30 H 27 H Blood Pressure 101/67 100/65 Pulse Oximetry 99 100 100 05/31/18 20:00 05/31/18 21:00 05/31/18 22:00 Temperature 99.3 F Pulse Rate 102 H 88 90 Respiratory Rate 28 H 24 24 Blood Pressure 108/74 115/73 119/74 Pulse Oximetry 100 100 96 05/31/18 23:01 06/01/18 00:00 06/01/18 01:00 Temperature 99.1 F Pulse Rate 78 94 H 86 Respiratory Rate 32 H 24 26 H Blood Pressure 115/77 116/79 114/75 Pulse Oximetry 92 L 99 95 06/01/18 02:01 06/01/18 03:01 06/01/18 04:00 Temperature Pulse Rate 82 80 88 Respiratory Rate 26 H 31 H 27 H Blood Pressure 108/71 125/77 118/75 Pulse Oximetry 95 100 96 06/01/18 04:01 06/01/18 05:00 06/01/18 06:00 Temperature 98.3 F Pulse Rate 86 82 74 Respiratory Rate 27 H 24 24 Blood Pressure 103/71 106/71 Pulse Oximetry 98 96 97 06/01/18 07:00 06/01/18 07:01 06/01/18 08:01 Temperature 97.8 F Pulse Rate 70 86 Respiratory Rate 23 26 H Blood Pressure 120/79 113/82 Pulse Oximetry 94 L 100 90 L 06/01/18 09:00 06/01/18 09:01 06/01/18 10:01 Temperature Pulse Rate 72 80 86 Respiratory Rate 31 H 31 H Blood Pressure 91/52 L 119/80 Pulse Oximetry 95 99 06/01/18 11:01 06/01/18 12:01 06/01/18 13:01 Temperature 98.6 F Pulse Rate 72 80 94 H Respiratory Rate 28 H 27 H 28 H Blood Pressure 117/78 125/78 113/76 Pulse Oximetry 99 100 100 06/01/18 14:01 Temperature Pulse Rate 90 Respiratory Rate 25 H Blood Pressure 119/82 Pulse Oximetry 99 Intake & Output 05/31/18 06/01/18 06/01/18 18:59 06:59 18:59 Intake Total 2350 / 2350 2400 / 2400 1510 / 1510 Output Total 0 / 0 450 / 450 Balance 2350 / 2350 1950 / 1950 1510 / 1510 Weight 68.1 kg 66.8 kg Intake: IV 2350 / 2350 1999 1510 / 1510 NS + KCl 20 mEq Inj 1,000 ML @ 1999 / 1999 1000 / 1000 125 mls/hr IV.CONT .Q8H [facility] Rx# :[id number] Azithromycin Inj 500 MG In NS 250 / 250 Inj 250 ML @ 500 mls/hr IV.SIG ONCE ONE Rx#:[id number] Calcium Gluconate Inj 1 GM In 110 / 110 D5W Inj 100 ML @ 110 mls/hr IV. SIG ONCE ONE Rx#:[id number] KCl 20 mEq Premix Inj 20 meq In 300 / 300 100 ml @ 50 mls/hr IV.SIG Q2H PRN Rx#:[id number] NS Inj 1,000 ML @ Wide Open IV. 1999 SIG BOLUS MARK Rx#:[id number] Rocephin Inj 1,000 MG In NS Inj 100 / 100 100 ML @ 200 mls/hr IV.SIG Q24H MARK Rx#:[id number] Rocephin Inj 2,000 MG In NS Inj 100 / 100 100 ML @ 200 mls/hr IV.SIG ONCE ONE Rx#:[id number] Oral 400 / 400 Output: Urine 0 / 0 450 / 450 Other: Date of Last Bowel Movement 05/31/18 06/01/18 05/31/18 # Bowel Movements 2 Narrative: GENERAL: Alert, Oriented x 3, NAD. SKIN: Warm and dry. HEAD: Normocephalic. EYES: No scleral icterus. No injection or drainage. NECK: Supple, trachea midline. No JVD or lymphadenopathy. CARDIOVASCULAR: Regular rate and rhythm without murmurs, gallops, or rubs. RESPIRATORY: Breath sounds equal bilaterally. No accessory muscle use. GASTROINTESTINAL: Abdomen soft, non-tender, nondistended. MUSCULOSKELETAL: No cyanosis, or edema. BACK: Nontender without obvious deformity. No CVA tenderness. Results - Labs CBC & Chem 7: 06/01/18 04:35 06/01/18 21:30 Laboratory Results - last 24 hr 05/31/18 05/31/18 06/01/18 21:40 21:40 04:35 CBC w Diff Slide review pending WBC 3.9 L RBC 2.76 L Hgb 8.4 L Hct 26.1 L MCV 94.6 MCH 30.3 MCHC 32.0 RDW 15.9 Plt Count 58 L MPV 8.2 Neut % (Auto) 69.7 Lymph % (Auto) 16.5 [place] % (Auto) 12.6 H Eos % (Auto) 0.7 Baso % (Auto) 0.5 Neut # (Auto) 2.8 Lymph # (Auto) 0.6 L [place] # (Auto) 0.5 Eos # (Auto) 0.0 Baso # (Auto) 0.0 WBC Differential . Diff Scan Auto diff confirmed Differential Comment . Platelet Estimate Low L Platelet Morphology Enlarged H RBC Morphology Normal Sodium Potassium Chloride Carbon Dioxide Anion Gap BUN Creatinine Estimated GFR Random Glucose Lactic Acid Calcium Prot Corrected Calcium Magnesium Total Bilirubin AST ALT Alkaline Phosphatase Total Protein Albumin Nasal Screen MRSA (PCR) Not detected St C. diff Tox Epid 027 Negative C. difficile Tox (PCR) Negative 06/01/18 06/01/18 06/01/18 04:35 04:35 04:35 CBC w Diff WBC RBC Hgb Hct MCV MCH MCHC RDW Plt Count MPV Neut % (Auto) Lymph % (Auto) [place] % (Auto) Eos % (Auto) Baso % (Auto) Neut # (Auto) Lymph # (Auto) [place] # (Auto) Eos # (Auto) Baso # (Auto) WBC Differential Diff Scan Differential Comment Platelet Estimate Platelet Morphology RBC Morphology Sodium 139 D Potassium 3.2 L Chloride 104 D Carbon Dioxide 23.9 Anion Gap 11 BUN 5 L Creatinine 0.35 L Estimated GFR Greater than 89 Random Glucose 77 Lactic Acid 0.7 Calcium 7.0 L* D Prot Corrected Calcium 7.3 L* Magnesium 1.0 L Total Bilirubin 1.7 H AST 37 ALT 23 Alkaline Phosphatase 73 Total Protein 6.6 D Albumin 2.1 L D Nasal Screen MRSA (PCR) St C. diff Tox Epid 027 C. difficile Tox (PCR) Microbiology 05/31/18 21:40 Stool Enteric Pathogens (PCR) - Final No enteric pathogens detected by PCR (No Salmonella sp., Shigella sp., Campylobacter sp., Yersinia enterocolitica, Vibrio sp., Norovirus, or EHEC (Shiga Toxin 1 or Shiga Toxin 2) detected. 05/31/18 09:05 Blood - Peripheral Aerobic Blood Culture - Preliminary No growth in 1 day 05/31/18 09:05 Blood - Peripheral Anaerobic Blood Culture - Preliminary No growth in 1 day 05/31/18 09:00 Blood - Peripheral Aerobic Blood Culture - Preliminary No growth in 1 day 05/31/18 09:00 Blood - Peripheral Anaerobic Blood Culture - Preliminary No growth in 1 day 05/31/18 21:40 Stool Stool for WBCs - Final Rare WBC's - Imaging Impressions Abdomen/Pelvis CT 05/31/18 12:28 CONCLUSION: 1. Left lower lobe pneumonia. 2. Fatty liver and splenomegaly. Assessment and Plan - Assessment (1) Sepsis Code(s): A41.9 - Sepsis, unspecified organism Status: Acute (2) Pneumonia Code(s): J18.9 - Pneumonia, unspecified organism Status: Acute (3) Vomiting Code(s): R11.10 - Vomiting, unspecified Status: Acute (4) Diarrhea Code(s): R19.7 - Diarrhea, unspecified Status: Acute (5) Lactic acidosis Code(s): E87.2 - Acidosis Status: Acute (6) Elevated liver enzymes Code(s): R74.8 - Abnormal levels of other serum enzymes Status: Acute - Plan 42-year-old male with known history of seizures, chronic alcoholism who presented the hospital because of 5 day history of nausea, vomiting, diarrhea. Patient had an witnessed seizure in the hospital. Sepsis (Tachycardia, lactic acidosis, pneumonia) Left sided pneumonia - Will switch abx to PO Levaquin 750mg Qday X 7 days. - Wean off nasal cannula O2. Alcohol withdrawal seizures - Lorazepam as needed. No further episodes. - Patient is strongly advised to seek help at [facility] Hypomagnesemia - Mg level 1.0. Will replace with 4g of Mg Sulfate IV. Alcohol abuse -We will need to monitor for withdrawal symptoms -[facility] protocol -thiamine and folic acid Full code.
[2018-06-01] MEDS ORDERED: Mag Sulf 1 gm/100 ml Premix 100 ML IV.SIG SCH ×2 (17:11→17:12)
[2018-06-01] MEDS: Magnesium Sulfate Inj 4 GM in Sodium Chlor 0.9% Inj 92 ML IV.SIG PRN (19:11)
[2018-06-02] MEDS: Chlorhexidine Gluconate 2% 1 Pack (2 Cloths) TOPICAL SCH (05:07)
[2018-06-02] MEDS: Haloperidol Inj 5 MG/ML Ampul IV.PUSH PRN ×2 (05:08→05:43)
[2018-06-02] MEDS: Folic Acid 1 MG Tablet PO SCH (10:04)
[2018-06-02] MEDS: levoFLOXacin 750 MG Tablet PO SCH (10:04)
[2018-06-03] MEDS: Chlorhexidine Gluconate 2% 1 Pack (2 Cloths) TOPICAL SCH (05:29)
[2018-06-03] MEDS: levoFLOXacin 750 MG Tablet PO SCH (09:59)
[2018-06-03] MEDS: chlordiazePOXIDE 25 MG Capsule PO PRN ×2 (09:59→18:43)
[2018-06-03] MEDS: Folic Acid 1 MG Tablet PO SCH (09:59)
--- NOTE | 2018-06-03 11:46 | P.PN ---
Subjective Interval history: Late entry for 06/02/2018 Follow up for alcohol withdrawal and alcohol withdrawal seizure. Patient is requiring restraints and lorazepam per [facility] protocol. He is showing significant withdrawal symptoms. Physical Exam Vital signs: Vital Signs 06/02/18 12:00 06/02/18 13:00 06/02/18 14:00 Temperature 98.3 F Pulse Rate 92 H 86 76 Respiratory Rate 27 H 32 H 20 Blood Pressure 135/87 140/83 117/77 Pulse Oximetry 06/02/18 15:00 06/02/18 16:00 06/02/18 19:00 Temperature Pulse Rate 88 82 Respiratory Rate 28 H 25 H Blood Pressure 140/86 129/85 Pulse Oximetry 96 06/02/18 20:00 06/02/18 21:00 06/03/18 00:00 Temperature 97.8 F 98.3 F Pulse Rate 76 76 96 H Respiratory Rate 20 20 28 H Blood Pressure 120/79 117/79 139/98 H Pulse Oximetry 96 95 96 06/03/18 01:00 06/03/18 04:00 06/03/18 08:00 Temperature 97.2 F L Pulse Rate 88 74 74 Respiratory Rate 26 H 19 Blood Pressure 141/89 H 130/83 Pulse Oximetry 96 97 06/03/18 08:53 Temperature Pulse Rate Respiratory Rate Blood Pressure Pulse Oximetry 97 Intake & Output 06/02/18 06/03/18 06/03/18 18:59 06:59 18:59 Intake Total 1200 / 1200 1999 / 1999 Output Total 1350 / 1350 1700 / 1700 Balance -150 / -150 300 / 300 Weight 61.2 kg Intake: IV 1000 / 1000 1999 / 1999 NS + KCl 20 mEq Inj 1,000 ML @ 1000 / 1000 1999 / 1999 125 mls/hr IV.CONT .Q8H MARK Rx# :[id number] Oral 200 / 200 Output: Urine 1350 / 1350 1700 / 1700 Other: Date of Last Bowel Movement 06/02/18 06/02/18 06/02/18 # Bowel Movements 2 1 # Incontinent Bowel Movements 1 1 Narrative: GENERAL: Alert. Requiring restraints. SKIN: Warm and dry. HEAD: Normocephalic. EYES: No scleral icterus. No injection or drainage. NECK: Supple, trachea midline. No JVD or lymphadenopathy. CARDIOVASCULAR: Regular rate and rhythm without murmurs, gallops, or rubs. RESPIRATORY: Breath sounds equal bilaterally. No accessory muscle use. GASTROINTESTINAL: Abdomen soft, non-tender, nondistended. MUSCULOSKELETAL: No cyanosis, or edema. BACK: Nontender without obvious deformity. No CVA tenderness. Results - Labs CBC & Chem 7: 06/01/18 04:35 06/01/18 21:30 Microbiology 05/31/18 09:05 Blood - Peripheral Aerobic Blood Culture - Preliminary No growth in 3 days 05/31/18 09:05 Blood - Peripheral Anaerobic Blood Culture - Preliminary No growth in 3 days 05/31/18 09:00 Blood - Peripheral Aerobic Blood Culture - Preliminary No growth in 3 days 05/31/18 09:00 Blood - Peripheral Anaerobic Blood Culture - Preliminary No growth in 3 days Assessment and Plan - Assessment (1) Sepsis Code(s): A41.9 - Sepsis, unspecified organism Status: Acute (2) Pneumonia Code(s): J18.9 - Pneumonia, unspecified organism Status: Acute (3) Vomiting Code(s): R11.10 - Vomiting, unspecified Status: Acute (4) Diarrhea Code(s): R19.7 - Diarrhea, unspecified Status: Acute (5) Lactic acidosis Code(s): E87.2 - Acidosis Status: Acute (6) Elevated liver enzymes Code(s): R74.8 - Abnormal levels of other serum enzymes Status: Acute - Plan 42-year-old male with known history of seizures, chronic alcoholism who presented the hospital because of 5 day history of nausea, vomiting, diarrhea. Patient had an witnessed seizure in the hospital. Sepsis (Tachycardia, lactic acidosis, pneumonia) Left sided pneumonia - Levaquin 750mg Qday X 7 days. - Wean off nasal cannula O2. Alcohol withdrawal seizures - Lorazepam as needed. No further episodes. - Patient is strongly advised to seek help at [facility]. Hypomagnesemia - Mg level 1.0. Replaced with 4g of Mg Sulfate IV. Alcohol abuse -We will need to monitor for withdrawal symptoms -[facility] protocol -thiamine and folic acid Full code. Will consider Lovenox for DVT prophylaxis.
--- NOTE | 2018-06-03 11:52 | P.PN ---
Subjective Interval history: Follow up for alcohol withdrawal and alcohol withdrawal seizure. Patient is showing withdrawal symptoms including tachycardia, tremors and hallucinations. No fever, chills. Physical Exam Vital signs: Vital Signs 06/02/18 12:00 06/02/18 13:00 06/02/18 14:00 Temperature 98.3 F Pulse Rate 92 H 86 76 Respiratory Rate 27 H 32 H 20 Blood Pressure 135/87 140/83 117/77 Pulse Oximetry 06/02/18 15:00 06/02/18 16:00 06/02/18 19:00 Temperature Pulse Rate 88 82 Respiratory Rate 28 H 25 H Blood Pressure 140/86 129/85 Pulse Oximetry 96 06/02/18 20:00 06/02/18 21:00 06/03/18 00:00 Temperature 97.8 F 98.3 F Pulse Rate 76 76 96 H Respiratory Rate 20 20 28 H Blood Pressure 120/79 117/79 139/98 H Pulse Oximetry 96 95 96 06/03/18 01:00 06/03/18 04:00 06/03/18 08:00 Temperature 97.2 F L Pulse Rate 88 74 74 Respiratory Rate 26 H 19 Blood Pressure 141/89 H 130/83 Pulse Oximetry 96 97 06/03/18 08:53 Temperature Pulse Rate Respiratory Rate Blood Pressure Pulse Oximetry 97 Intake & Output 06/02/18 06/03/18 06/03/18 18:59 06:59 18:59 Intake Total 1200 / 1200 1999 Output Total 1350 / 1350 1700 / 1700 Balance -150 / -150 300 / 300 Weight 61.2 kg Intake: IV 1000 / 1000 1999 NS + KCl 20 mEq Inj 1,000 ML @ 1000 / 1000 1999 125 mls/hr IV.CONT .Q8H [facility] Rx# :[id number] Oral 200 / 200 Output: Urine 1350 / 1350 1700 / 1700 Other: Date of Last Bowel Movement 06/02/18 06/02/18 06/02/18 # Bowel Movements 2 1 # Incontinent Bowel Movements 1 1 Narrative: GENERAL: Alert. Requiring restraints. Hallucinating. SKIN: Warm and dry. HEAD: Normocephalic. EYES: No scleral icterus. No injection or drainage. NECK: Supple, trachea midline. No JVD or lymphadenopathy. CARDIOVASCULAR: Tachycardic without murmurs, gallops, or rubs. RESPIRATORY: Breath sounds equal bilaterally. No accessory muscle use. GASTROINTESTINAL: Abdomen soft, non-tender, nondistended. MUSCULOSKELETAL: No cyanosis, or edema. BACK: Nontender without obvious deformity. No CVA tenderness. Results - Labs CBC & Chem 7: 06/01/18 04:35 06/01/18 21:30 Microbiology 05/31/18 09:05 Blood - Peripheral Aerobic Blood Culture - Preliminary No growth in 3 days 05/31/18 09:05 Blood - Peripheral Anaerobic Blood Culture - Preliminary No growth in 3 days 05/31/18 09:00 Blood - Peripheral Aerobic Blood Culture - Preliminary No growth in 3 days 05/31/18 09:00 Blood - Peripheral Anaerobic Blood Culture - Preliminary No growth in 3 days Assessment and Plan - Assessment (1) Sepsis Code(s): A41.9 - Sepsis, unspecified organism Status: Acute (2) Pneumonia Code(s): J18.9 - Pneumonia, unspecified organism Status: Acute (3) Vomiting Code(s): R11.10 - Vomiting, unspecified Status: Acute (4) Diarrhea Code(s): R19.7 - Diarrhea, unspecified Status: Acute (5) Lactic acidosis Code(s): E87.2 - Acidosis Status: Acute (6) Elevated liver enzymes Code(s): R74.8 - Abnormal levels of other serum enzymes Status: Acute - Plan 42-year-old male with known history of seizures, chronic alcoholism who presented the hospital because of 5 day history of nausea, vomiting, diarrhea. Patient had an witnessed seizure in the hospital. Sepsis (Tachycardia, lactic acidosis, pneumonia) Left sided pneumonia - Levaquin 750mg Qday X 7 days. - Wean off nasal cannula O2. Alcohol withdrawal seizures Hallucinations - Lorazepam as needed. No further episodes. We will try to use as much Lorazepam as possible - Haldol if it is necessary. - Patient is strongly advised to seek help at [facility] - Continue Librium. Hypomagnesemia - Mg level was 1.0. Replaced with 4g of Mg Sulfate IV. Alcohol abuse -We will need to monitor for withdrawal symptoms -[facility] protocol -thiamine and folic acid Full code. Start Lovenox for DVT prophylaxis.
[2018-06-03] MEDS: Magnesium Sulfate Inj 4 GM in Sodium Chlor 0.9% Inj 92 ML IV.SIG PRN (14:23)
[2018-06-04] MEDS: Chlorhexidine Gluconate 2% 1 Pack (2 Cloths) TOPICAL SCH (05:11)
[2018-06-04 06:38] LABS: Chloride 102 meq/L (98-107); Potassium 3.7 meq/L (3.5-5.1); Sodium 136 meq/L (136-145)
[2018-06-04 07:21] LABS: Anion Gap 12 meq/L (5-15); Blood Urea Nitrogen 4 mg/dL (7-18); Calcium 7.9 mg/dL (8.5-10.1); Carbon Dioxide 22.3 meq/L (21.0-32.0); Glomerular Filtration Rate Greater Than 89 mL/min (>89); Glucose,Random 89 mg/dL (74-106)
[2018-06-04] MEDS: Folic Acid 1 MG Tablet PO SCH (09:40)
[2018-06-04] MEDS: levoFLOXacin 750 MG Tablet PO SCH (09:40)
[2018-06-04] MEDS: Magnesium Sulfate Inj 4 GM in Sodium Chlor 0.9% Inj 92 ML IV.SIG PRN (11:15)
--- NOTE | 2018-06-04 12:29 | P.PNIM ---
Subjective Interval history: The pt was wondering when he could go home. He said that he hasn't had a drink of beer in a week. No other acute concerns. Discussed with nursing. Physical Exam Vital signs: Vital Signs 06/03/18 13:00 06/03/18 14:00 06/03/18 15:00 Temperature Pulse Rate 104 H 82 78 Respiratory Rate 25 H 23 24 Blood Pressure 120/81 119/84 125/80 Pulse Oximetry 06/03/18 16:00 06/03/18 17:00 06/03/18 18:00 Temperature Pulse Rate 98 H 100 H 92 H Respiratory Rate 20 22 22 Blood Pressure 108/81 115/87 138/93 H Pulse Oximetry 06/03/18 19:00 06/03/18 19:22 06/03/18 20:00 Temperature 97.2 F L Pulse Rate 118 H Respiratory Rate 26 H Blood Pressure 112/81 Pulse Oximetry 96 98 96 06/03/18 21:00 06/03/18 22:00 06/04/18 01:00 Temperature Pulse Rate 92 H 96 H 80 Respiratory Rate 22 20 21 Blood Pressure 100/64 114/76 103/66 Pulse Oximetry 96 97 96 06/04/18 04:00 06/04/18 05:00 06/04/18 07:00 Temperature 98.0 F 97.5 F L Pulse Rate 80 108 H 102 H Respiratory Rate 20 33 H 23 Blood Pressure 118/80 98/75 L 125/87 Pulse Oximetry 96 96 98 06/04/18 08:00 06/04/18 09:00 06/04/18 10:00 Temperature Pulse Rate 70 84 80 Respiratory Rate 19 22 22 Blood Pressure 125/82 136/91 H 141/92 H Pulse Oximetry Intake & Output 06/03/18 06/04/18 06/04/18 18:59 06:59 18:59 Intake Total 1680 / 1680 1999 Output Total 2300 / 2300 1275 / 1275 Balance -620 / -620 725 / 725 Weight 61.8 kg Intake: IV 1200 / 1200 1999 / 1999 NS + KCl 20 mEq Inj 1,000 ML @ 1000 / 1000 1999 125 mls/hr IV.CONT .Q8H [facility] Rx# :[id number] Magnesium Sulfate Inj 4 GM In 200 / 200 NS Inj 92 ML @ 50 mls/hr IV.SIG UNSCH PRN Rx#:[id number] Oral 480 / 480 Output: Urine 2300 / 2300 1275 / 1275 Other: Date of Last Bowel Movement 06/02/18 06/04/18 06/02/18 # Bowel Movements 0 1 # Incontinent Bowel Movements 0 Narrative: GENERAL: No distress. SKIN: Warm and dry. HEAD: Normocephalic. EYES: No scleral icterus. No injection or drainage. NECK: Supple, trachea midline. No JVD or lymphadenopathy. CARDIOVASCULAR: Tachycardic without murmurs, gallops, or rubs. RESPIRATORY: Breath sounds equal bilaterally. No accessory muscle use. GASTROINTESTINAL: Abdomen soft, non-tender, nondistended. MUSCULOSKELETAL: No cyanosis, or edema. BACK: Nontender without obvious deformity. No CVA tenderness. Results - Labs CBC & Chem 7: 06/01/18 04:35 06/04/18 05:10 Laboratory Results - last 24 hr 06/04/18 05:10 Sodium 136 Potassium 3.7 Chloride 102 Carbon Dioxide 22.3 Anion Gap 12 BUN 4 L Creatinine 0.41 L Estimated GFR Greater than 89 Random Glucose 89 Calcium 7.9 L Magnesium 1.0 L Microbiology 05/31/18 09:05 Blood - Peripheral Aerobic Blood Culture - Preliminary No growth in 4 days 05/31/18 09:05 Blood - Peripheral Anaerobic Blood Culture - Preliminary No growth in 4 days 05/31/18 09:00 Blood - Peripheral Aerobic Blood Culture - Preliminary No growth in 4 days 05/31/18 09:00 Blood - Peripheral Anaerobic Blood Culture - Preliminary No growth in 4 days Assessment and Plan - Assessment (1) Sepsis Code(s): A41.9 - Sepsis, unspecified organism Status: Acute (2) Pneumonia Code(s): J18.9 - Pneumonia, unspecified organism Status: Acute (3) Vomiting Code(s): R11.10 - Vomiting, unspecified Status: Acute (4) Diarrhea Code(s): R19.7 - Diarrhea, unspecified Status: Acute (5) Lactic acidosis Code(s): E87.2 - Acidosis Status: Acute (6) Elevated liver enzymes Code(s): R74.8 - Abnormal levels of other serum enzymes Status: Acute - Plan 42-year-old male with known history of seizures, chronic alcoholism who presented the hospital because of 5 day history of nausea, vomiting, diarrhea. Patient had an witnessed seizure in the hospital. Sepsis (Tachycardia, lactic acidosis, pneumonia) Left sided pneumonia - Levaquin 750mg Qday X 7 days. - Wean off nasal cannula O2. Alcohol withdrawal seizures Hallucinations - Lorazepam as needed. No further episodes. - Patient is strongly advised to seek help at [facility] - Continue Librium. -PT/OT. Hypomagnesemia - Mg level was 1. Replaced with 4g of Mg Sulfate IV. Continue to monitor. Alcohol abuse -[facility] protocol -thiamine and folic acid Lovenox for DVT prophylaxis
[2018-06-04] MEDS: chlordiazePOXIDE 25 MG Capsule PO PRN (21:32)
[2018-06-05] MEDS: Chlorhexidine Gluconate 2% 1 Pack (2 Cloths) TOPICAL SCH (04:28)
[2018-06-05] MEDS: Folic Acid 1 MG Tablet PO SCH (10:18)
[2018-06-05] MEDS: levoFLOXacin 750 MG Tablet PO SCH (10:18)
[2018-06-05 10:48] LABS: Baso % (Auto) 0.8 % (0.0-2.0); Eos % (Auto) 0.8 % (0.0-4.0); Hematocrit 30.9 % (39.0-51.0); Hemoglobin 9.9 gm/dL (13.0-17.0); Lymph # (Auto) 0.9 th/mm3 (1.0-4.8); Lymph % (Auto) 20.1 % (9.0-44.0); Mean Corpuscular HGB Conc 32.2 % (32.0-36.0); Mean Corpuscular Hemoglobin 31.5 pg (27.0-34.0); Mean Corpuscular Volume 97.9 fL (80.0-100.0); Mean Platelet Volume 6.8 fL (7.0-11.0); Mono # (Auto) 0.9 th/mm3 (0.0-0.9); Mono % (Auto) 19.7 % (0.0-8.0); Neut # (Auto) 2.7 th/mm3 (1.8-7.7); Neut % (Auto) 58.6 % (16.0-70.0); Platelet Count 188 th/mm3 (150-450); Red Blood Count 3.16 mil/mm3 (4.50-5.90); Red Cell Distribution Width 17.5 % (11.6-17.2); White Blood Count 4.5 th/mm3 (4.0-11.0)
[2018-06-05 11:15] LABS: Chloride 101 meq/L (98-107); Potassium 3.5 meq/L (3.5-5.1); Sodium 138 meq/L (136-145)
[2018-06-05 11:18] LABS: Anion Gap 10 meq/L (5-15); Blood Urea Nitrogen 2 mg/dL (7-18); Glucose,Random 83 mg/dL (74-106)
[2018-06-05 11:21] LABS: Glomerular Filtration Rate Greater Than 89 mL/min (>89)
--- NOTE | 2018-06-05 12:06 | P.PNIM ---
Subjective Interval history: The pt wanted to get out of bed and go home. He said he would like to walk around. He feels great. Discussed with nursing. Physical Exam Vital signs: Vital Signs 06/04/18 12:00 06/04/18 13:00 06/04/18 14:00 Temperature 97.7 F Pulse Rate 90 88 100 H Respiratory Rate 19 20 20 Blood Pressure 104/78 93/69 L 93/69 L Pulse Oximetry 97 06/04/18 15:00 06/04/18 16:00 06/04/18 17:00 Temperature 98.6 F Pulse Rate 106 H 90 76 Respiratory Rate 22 21 20 Blood Pressure 100/77 116/79 124/84 Pulse Oximetry 98 06/04/18 18:00 06/04/18 19:00 06/04/18 20:00 Temperature 98.2 F Pulse Rate 114 H 104 H 88 Respiratory Rate 27 H 20 18 Blood Pressure 117/82 102/72 112/78 Pulse Oximetry 06/05/18 00:00 06/05/18 04:00 Temperature 98.3 F Pulse Rate 79 74 Respiratory Rate 18 22 Blood Pressure 146/94 H 119/72 Pulse Oximetry 97 99 Intake & Output 06/04/18 06/05/18 06/05/18 18:59 06:59 18:59 Intake Total 1900 / 1900 2960 / 2960 Output Total 1900 / 1900 1100 / 1100 Balance 0 / 0 1860 / 1860 Weight 60.6 kg Intake: IV 1100 / 1100 1999 / 1999 NS + KCl 20 mEq Inj 1,000 ML @ 1000 / 1000 2000 / 2000 125 mls/hr IV.CONT .Q8H MARK Rx# :[id number] Magnesium Sulfate Inj 4 GM In 100 / 100 NS Inj 92 ML @ 50 mls/hr IV.SIG UNSCH PRN Rx#:[id number] Oral 800 / 800 960 / 960 Output: Urine 1900 / 1900 1100 / 1100 Other: Date of Last Bowel Movement 06/04/18 06/03/18 # Bowel Movements 0 0 Narrative: GENERAL: No distress. SKIN: Warm and dry. HEAD: Normocephalic. EYES: No scleral icterus. No injection or drainage. NECK: Supple, trachea midline. No JVD or lymphadenopathy. CARDIOVASCULAR: RRR without murmurs, gallops, or rubs. RESPIRATORY: Breath sounds equal bilaterally. No accessory muscle use. GASTROINTESTINAL: Abdomen soft, non-tender, nondistended. MUSCULOSKELETAL: No cyanosis, or edema. BACK: Nontender without obvious deformity. No CVA tenderness. Results - Labs CBC & Chem 7: 06/01/18 04:35 06/05/18 10:45 Laboratory Results - last 24 hr 06/05/18 10:45 Sodium 138 Potassium 3.5 Chloride 101 Carbon Dioxide 27.0 Anion Gap 10 BUN 2 L Creatinine 0.61 Estimated GFR Greater than 89 Random Glucose 83 Calcium 8.0 L Magnesium 1.0 L Microbiology 05/31/18 09:05 Blood - Peripheral Aerobic Blood Culture - Final No growth in 5 days 05/31/18 09:05 Blood - Peripheral Anaerobic Blood Culture - Final No growth in 5 days 05/31/18 09:00 Blood - Peripheral Aerobic Blood Culture - Final No growth in 5 days 05/31/18 09:00 Blood - Peripheral Anaerobic Blood Culture - Final No growth in 5 days Assessment and Plan - Assessment (1) Sepsis Code(s): A41.9 - Sepsis, unspecified organism Status: Acute (2) Pneumonia Code(s): J18.9 - Pneumonia, unspecified organism Status: Acute (3) Vomiting Code(s): R11.10 - Vomiting, unspecified Status: Acute (4) Diarrhea Code(s): R19.7 - Diarrhea, unspecified Status: Acute (5) Lactic acidosis Code(s): E87.2 - Acidosis Status: Acute (6) Elevated liver enzymes Code(s): R74.8 - Abnormal levels of other serum enzymes Status: Acute - Plan 42-year-old male with known history of seizures, chronic alcoholism who presented the hospital because of 5 day history of nausea, vomiting, diarrhea. Patient had an witnessed seizure in the hospital. Sepsis (Tachycardia, lactic acidosis, pneumonia) Left sided pneumonia - Levaquin 750mg Qday X 7 days. - Wean off nasal cannula O2. Alcohol withdrawal seizures Hallucinations - Lorazepam as needed. No further episodes. - Patient is strongly advised to seek help at [facility]. -PT/OT. Hypomagnesemia - Mg level remains at 1. Replaced with 4g of Mg Sulfate IV. Continue to monitor. Alcohol abuse -cessation instruction. -[facility] protocol. -thiamine and folic acid. Lovenox for DVT prophylaxis
[2018-06-05] MEDS: Magnesium Sulfate Inj 4 GM in Sodium Chlor 0.9% Inj 92 ML IV.SIG PRN (14:10)
[2018-06-05] MEDS ORDERED: Thiamine Inj 500 MG in Sodium Chlor 0.9% Inj 250 ML IV.SIG SCH (17:00)
[2018-06-05 17:50] LABS: Thyroid Stimulating Hormone 3.11 uIU/mL (0.358-3.740)
[2018-06-05] MEDS: Thiamine Inj 500 MG in Sodium Chlor 0.9% Inj 250 ML IV.SIG SCH (17:56)
[2018-06-05] MEDS: chlordiazePOXIDE 25 MG Capsule PO PRN (20:01)
[2018-06-06] MEDS: Thiamine Inj 500 MG in Sodium Chlor 0.9% Inj 250 ML IV.SIG SCH ×3 (02:00→18:00)
[2018-06-06 06:28] LABS: Chloride 103 meq/L (98-107); Potassium 3.6 meq/L (3.5-5.1); Sodium 138 meq/L (136-145)
[2018-06-06 06:32] LABS: Anion Gap 10 meq/L (5-15); Blood Urea Nitrogen 2 mg/dL (7-18); Calcium 8.1 mg/dL (8.5-10.1); Carbon Dioxide 25.5 meq/L (21.0-32.0); Glucose,Random 88 mg/dL (74-106); Magnesium 1.1 mg/dL (1.5-2.5)
[2018-06-06 06:36] LABS: Glomerular Filtration Rate Greater Than 89 mL/min (>89)
[2018-06-06] MEDS: Folic Acid 1 MG Tablet PO SCH (08:43)
[2018-06-06] MEDS: levoFLOXacin 750 MG Tablet PO SCH (08:43)
[2018-06-06] MEDS: Magnesium Sulfate Inj 4 GM in Sodium Chlor 0.9% Inj 92 ML IV.SIG PRN (08:44)
--- NOTE | 2018-06-06 13:35 | P.PNIM ---
Subjective Interval history: The patient wanted to go home. He said he falls down all the time. He said he really wants to smoke a cigarette. Discussed with nursing who states he has been anxious. Physical Exam Vital signs: Vital Signs 06/05/18 13:34 06/05/18 13:38 06/05/18 14:01 Temperature Pulse Rate 90 Respiratory Rate 15 Blood Pressure 109/81 136/93 H 124/85 Pulse Oximetry 06/05/18 15:01 06/05/18 16:01 06/05/18 17:54 Temperature 98 F Pulse Rate 88 82 114 H Respiratory Rate 18 16 27 H Blood Pressure 109/81 129/90 118/84 Pulse Oximetry 97 06/05/18 19:00 06/05/18 20:00 06/05/18 20:54 Temperature 97.9 F Pulse Rate 102 H 106 H 80 Respiratory Rate 17 19 15 Blood Pressure 117/87 101/68 101/68 Pulse Oximetry 06/05/18 21:00 06/05/18 22:00 06/05/18 23:00 Temperature Pulse Rate 98 H 88 72 Respiratory Rate 21 16 12 Blood Pressure 127/84 140/92 H 105/75 Pulse Oximetry 06/06/18 00:00 06/06/18 01:00 06/06/18 02:00 Temperature Pulse Rate 68 72 70 Respiratory Rate 14 17 18 Blood Pressure 112/73 110/71 138/73 Pulse Oximetry 06/06/18 03:00 06/06/18 04:00 06/06/18 07:01 Temperature 98.7 F Pulse Rate 92 H 74 100 H Respiratory Rate 17 14 13 Blood Pressure 126/83 117/77 113/73 Pulse Oximetry 06/06/18 08:00 06/06/18 09:00 06/06/18 09:01 Temperature Pulse Rate 74 114 H 154 H Respiratory Rate 13 28 H 26 H Blood Pressure 111/70 106/74 Pulse Oximetry 06/06/18 10:00 06/06/18 10:04 06/06/18 11:00 Temperature Pulse Rate 120 H 106 H 100 H Respiratory Rate 16 12 16 Blood Pressure 80/60 L 83/61 L 91/65 L Pulse Oximetry 06/06/18 12:01 Temperature 98.1 F Pulse Rate 102 H Respiratory Rate 17 Blood Pressure 112/79 Pulse Oximetry Intake & Output 06/05/18 06/06/18 06/06/18 18:59 06:59 18:59 Intake Total 1999 100 / 100 Output Total 1625 / 1625 2400 / 2400 Balance 375 / 375 -390 / -390 100 / 100 Weight 60.5 kg Intake: IV 1100 / 1100 1510 / 1510 100 / 100 NS + KCl 20 mEq Inj 1,000 ML @ 1000 / 1000 1000 / 1000 125 mls/hr IV.CONT .Q8H MARK Rx# :[id number] Magnesium Sulfate Inj 4 GM In 100 / 100 100 / 100 NS Inj 92 ML @ 50 mls/hr IV.SIG UNSCH PRN Rx#:[id number] Thiamine Inj 500 MG In NS Inj 510 / 510 250 ML @ 62.5 mls/hr IV.SIG Q8H MARK Rx#:[id number] Oral 900 / 900 500 / 500 Output: Urine 1625 / 1625 2400 / 2400 Other: Date of Last Bowel Movement 06/05/18 06/05/18 06/06/18 # Bowel Movements 1 Narrative: GENERAL: No distress. SKIN: Warm and dry. HEAD: Normocephalic. EYES: No scleral icterus. No injection or drainage. NECK: Supple, trachea midline. No JVD or lymphadenopathy. CARDIOVASCULAR: RRR without murmurs, gallops, or rubs. RESPIRATORY: Breath sounds equal bilaterally. No accessory muscle use. GASTROINTESTINAL: Abdomen soft, non-tender, nondistended. MUSCULOSKELETAL: No cyanosis, or edema. BACK: Nontender without obvious deformity. No CVA tenderness. Results - Labs CBC & Chem 7: 06/05/18 10:45 06/06/18 05:45 Laboratory Results - last 24 hr 06/05/18 06/05/18 06/06/18 16:55 16:55 05:45 Sodium 138 Potassium 3.6 Chloride 103 Carbon Dioxide 25.5 Anion Gap 10 BUN 2 L Creatinine 0.49 L Estimated GFR Greater than 89 Random Glucose 88 Calcium 8.1 L Magnesium 1.1 L Ammonia 32 Vitamin B12 878 TSH 3.110 Microbiology 05/31/18 09:05 Blood - Peripheral Aerobic Blood Culture - Final No growth in 5 days 05/31/18 09:05 Blood - Peripheral Anaerobic Blood Culture - Final No growth in 5 days 05/31/18 09:00 Blood - Peripheral Aerobic Blood Culture - Final No growth in 5 days 05/31/18 09:00 Blood - Peripheral Anaerobic Blood Culture - Final No growth in 5 days Assessment and Plan - Assessment (1) Sepsis Code(s): A41.9 - Sepsis, unspecified organism Status: Acute (2) Pneumonia Code(s): J18.9 - Pneumonia, unspecified organism Status: Acute (3) Vomiting Code(s): R11.10 - Vomiting, unspecified Status: Acute (4) Diarrhea Code(s): R19.7 - Diarrhea, unspecified Status: Acute (5) Lactic acidosis Code(s): E87.2 - Acidosis Status: Acute (6) Elevated liver enzymes Code(s): R74.8 - Abnormal levels of other serum enzymes Status: Acute - Plan 42-year-old male with known history of seizures, chronic alcoholism who presented the hospital because of 5 day history of nausea, vomiting, diarrhea. Patient had an witnessed seizure in the hospital. Sepsis (Tachycardia, lactic acidosis, pneumonia) Left sided pneumonia - Levaquin 750mg Qday X 7 days. D/c on 06/07. - Wean off nasal cannula O2. Alcohol withdrawal seizures Hallucinations - Lorazepam as needed. - Patient is strongly advised to seek help at [facility]. -PT/OT. Hypomagnesemia - Mg level remains low at 1.1. Replaced with 4g of Mg Sulfate IV. Continue to monitor. Alcohol abuse -cessation instruction. -[facility] protocol. -thiamine and folic acid. Change thiamine to IV 06/05. -Continue working with PT. Lovenox for DVT prophylaxis
[2018-06-06] MEDS: LORazepam 1 MG Tablet PO PRN (14:22)
[2018-06-06] MEDS ORDERED: Mag Sulf 1 gm/100 ml Premix 100 ML IV.SIG ONE (18:00)
[2018-06-06] MEDS: chlordiazePOXIDE 25 MG Capsule PO PRN (21:18)
[2018-06-07] MEDS: Thiamine Inj 500 MG in Sodium Chlor 0.9% Inj 250 ML IV.SIG SCH (02:30)
[2018-06-07 06:16] LABS: Chloride 103 meq/L (98-107); Potassium 3.5 meq/L (3.5-5.1); Sodium 137 meq/L (136-145)
[2018-06-07 06:23] LABS: Calcium 8.8 mg/dL (8.5-10.1)
[2018-06-07 06:24] LABS: Anion Gap 8 meq/L (5-15); Blood Urea Nitrogen 3 mg/dL (7-18); Carbon Dioxide 26.2 meq/L (21.0-32.0); Glucose,Random 114 mg/dL (74-106); Magnesium 1.3 mg/dL (1.5-2.5)
[2018-06-07 06:27] LABS: Glomerular Filtration Rate Greater Than 89 mL/min (>89)
[2018-06-07] MEDS: Folic Acid 1 MG Tablet PO SCH (09:06)
[2018-06-07] MEDS: levoFLOXacin 750 MG Tablet PO SCH (09:06)
[2018-06-07] MEDS: LORazepam 1 MG Tablet PO PRN (09:09)
[2018-06-07] MEDS: Mag Sulf 1 gm/100 ml Premix 100 ML IV.SIG SCH ×4 (10:07→13:44)
--- NOTE | 2018-06-07 11:11 | P.PNIM ---
Subjective Interval history: The patient really wanted to go home. He wanted to walk around. He wanted to know what medications he would be discharged on. His family was at the bedside. Discussed with nursing. Physical Exam Vital signs: Vital Signs 06/06/18 12:01 06/06/18 16:00 06/06/18 17:00 Temperature 98.1 F 96.8 F L Pulse Rate 102 H 109 H 103 H Respiratory Rate 17 17 Blood Pressure 112/79 139/93 H Pulse Oximetry 96 06/06/18 20:00 06/07/18 00:00 06/07/18 04:00 Temperature 97.0 F L 97.3 F L 97.1 F L Pulse Rate 110 H 87 79 Respiratory Rate 18 18 18 Blood Pressure 108/77 118/77 107/73 Pulse Oximetry 98 99 96 06/07/18 08:00 Temperature 98.2 F Pulse Rate 94 H Respiratory Rate 18 Blood Pressure 108/73 Pulse Oximetry 96 Intake & Output 06/06/18 06/07/18 06/07/18 18:59 06:59 18:59 Intake Total 1355 / 1355 1010 / 1010 Output Total 3200 / 3200 Balance 1355 / 1355 -2190 / -2190 Weight 61.8 kg Intake: IV 1355 / 1355 1010 / 1010 NS + KCl 20 mEq Inj 1,000 ML @ 1000 / 1000 400 / 400 125 mls/hr IV.CONT .Q8H MARK Rx# :[id number] Magnesium Sulfate 1 gm/D5W 100 100 / 100 ml Premix 100 ML @ 100 mls/hr IV.SIG ONCE ONE Rx#:[id number] Magnesium Sulfate Inj 4 GM In 100 / 100 NS Inj 92 ML @ 50 mls/hr IV.SIG UNSCH PRN Rx#:[id number] Thiamine Inj 500 MG In NS Inj 255 / 255 510 / 510 250 ML @ 62.5 mls/hr IV.SIG Q8H MARK Rx#:[id number] Output: Urine 3200 / 3200 Other: # Voids 3 Date of Last Bowel Movement 06/06/18 06/06/18 # Bowel Movements 2 Narrative: GENERAL: No distress. SKIN: Warm and dry. HEAD: Normocephalic. EYES: No scleral icterus. No injection or drainage. NECK: Supple, trachea midline. No JVD or lymphadenopathy. CARDIOVASCULAR: Tachycardic without murmurs, gallops, or rubs. RESPIRATORY: Breath sounds equal bilaterally. No accessory muscle use. GASTROINTESTINAL: Abdomen soft, non-tender, nondistended. MUSCULOSKELETAL: No cyanosis, or edema. BACK: Nontender without obvious deformity. No CVA tenderness. Results - Labs CBC & Chem 7: 06/05/18 10:45 06/07/18 05:50 Laboratory Results - last 24 hr 06/06/18 06/07/18 14:10 05:50 Sodium 137 Potassium 3.5 Chloride 103 Carbon Dioxide 26.2 Anion Gap 8 BUN 3 L Creatinine 0.54 L Estimated GFR Greater than 89 Random Glucose 114 H Calcium 8.8 Magnesium 1.7 D 1.3 L Assessment and Plan - Assessment (1) Sepsis Code(s): A41.9 - Sepsis, unspecified organism Status: Acute (2) Pneumonia Code(s): J18.9 - Pneumonia, unspecified organism Status: Acute (3) Vomiting Code(s): R11.10 - Vomiting, unspecified Status: Acute (4) Diarrhea Code(s): R19.7 - Diarrhea, unspecified Status: Acute (5) Lactic acidosis Code(s): E87.2 - Acidosis Status: Acute (6) Elevated liver enzymes Code(s): R74.8 - Abnormal levels of other serum enzymes Status: Acute - Plan 42-year-old male with known history of seizures, chronic alcoholism who presented the hospital because of 5 day history of nausea, vomiting, diarrhea. Patient had an witnessed seizure in the hospital. Sepsis (Tachycardia, lactic acidosis, pneumonia) Left sided pneumonia - Levaquin course completed 06/07. - Wean off nasal cannula O2. Sinus tachycardia Possibly s/t deconditioning. HR increases upon ambulation. TSH WNL. -telemetry. -blood pressure too low to allow for beta nilsa. Alcohol withdrawal seizures Hallucinations - Lorazepam as needed. - Patient is strongly advised to seek help at [facility]. -PT/OT. Hypomagnesemia - Mg level remains low. Replace with 4g of Mg Sulfate IV. Continue to monitor. Alcohol abuse -cessation instruction. -[facility] protocol. -thiamine and folic acid. Change thiamine to IV 06/05. -Continue working with PT. Lovenox for DVT prophylaxis
[2018-06-07] MEDS ORDERED: Atenolol 25 MG Tablet PO SCH (15:00)
--- NOTE | 2018-06-07 16:32 | P.AMA ---
AMA Note - AMA Note Recommended Treatment Course: Monitor and replace electrolytes, monitor heart rate on telemetry, continue to work with physical therapy AMA Statement: Patient Dony Hankins has decided to leave the hospital against medical advice. This patient has the capacity to refuse care and understands the risks of leaving, including permanent disability and/or , and has had an opportunity to ask questions about his/her condition. The patient has been informed that he/she may return for care at any time, and follow up has been arranged/advised. - AMA Note Discharge Disposition: Left Against Medical Advice Patient Condition on Discharge: Fair
--- NOTE | 2018-06-07 16:41 | P.DS ---
Date of admission: 05/31/18 10:44 Primary care physician: PROVIDER NON STAFF Anticipated date of discharge: 06/07/18 Brief History from admission: 42-year-old male with known history of seizures, chronic alcoholism who presented the hospital because of 5 day history of nausea, vomiting, diarrhea. Patient indicates her last 5 days he has had difficulty with tolerate anything by mouth other than beer. Patient states that his appetite has significantly decreased. He has had abdominal discomfort which is diffuse after he vomits. He has not been able to really eat anything for the last 5 days. Indicates that he has gone down from drinking 18 beers a day down to 2 beers a day. Because the symptoms not resolve he came to emergency department for evaluation. Patient denies any hematemesis, shortness of breath, chest pain, fever, chills. Patient denies any sick exposures, denies any recent antibiotic use. Patient had workup done emergency department found to have multiple abnormalities to include lactic acidosis, tachycardia, electrolyte abnormalities , elevated liver enzymes x-ray indicating atelectasis versus developing infiltrate. Is recommended by ER physician the patient be admitted for sepsis. Patient does have history of chronic alcoholism. He does have withdrawal seizures. Significant other indicates that the patient has seizure 2 days ago at his sister's house. DS: Diagnosis - Discharge Diagnosis (1) Tachycardia Status: Acute (2) Hypomagnesemia Status: Acute (3) Sepsis Status: Acute (4) Pneumonia Status: Acute DS: Summary Hospital Course: 42-year-old male with known history of seizures, chronic alcoholism who presented the hospital because of 5 day history of nausea, vomiting, diarrhea. Patient had a witnessed seizure in the hospital. He had sepsis (Tachycardia, tachypnea, lactic acidosis, pneumonia) and completed a course of Levaquin. He was weaned off of Levaquin. He was treated for alcohol withdrawal in the ICU. He was placed on the CIWA protocol and received Ativan as needed for anxiety. He was also started on IV thiamine. Telemetry demonstrated tachycardia up to the 160s with minimal exertion. TSH WNL. He worked with physical therapy. His magnesium was consistently very low and he required much IV repletion with magnesium sulfate. The pt kept stating he needed a cigarette and an alcoholic beverage and decided to leave the hospital against medical advice. He understood the risks of leaving the hospital prematurely. - Time Spent with Patient Total time spent providing and/or coordinating discharge services: Greater than 30 minutes - Quality: VTE Deep Vein Thrombosis/Pulmonary Embolism Present on Admission: No Exam Vital signs: Vital Signs 06/06/18 17:00 06/06/18 20:00 06/07/18 00:00 Temperature 97.0 F L 97.3 F L Pulse Rate 103 H 110 H 87 Respiratory Rate 18 18 Blood Pressure 108/77 118/77 Pulse Oximetry 98 99 06/07/18 04:00 06/07/18 08:00 06/07/18 12:00 Temperature 97.1 F L 98.2 F 98.2 F Pulse Rate 79 106 H 103 H Respiratory Rate 18 18 18 Blood Pressure 107/73 108/73 114/72 Pulse Oximetry 96 96 98 06/07/18 15:32 Temperature 97.2 F L Pulse Rate 94 H Respiratory Rate 18 Blood Pressure 111/79 Pulse Oximetry 99 Intake & Output 06/06/18 06/07/18 06/07/18 18:59 06:59 18:59 Intake Total 1355 / 1355 1010 / 1010 1000 / 1000 Output Total 3200 / 3200 Balance 1355 / 1355 -2190 / -2190 1000 / 1000 Weight 61.8 kg Intake: IV 1355 / 1355 1010 / 1010 1000 / 1000 NS + KCl 20 mEq Inj 1,000 ML @ 1000 / 1000 400 / 400 600 / 600 125 mls/hr IV.CONT .Q8H MARK Rx# :[id number] Magnesium Sulfate 1 gm/D5W 100 100 / 100 400 / 400 ml Premix 100 ML @ 100 mls/hr IV.SIG Q1H MARK Rx#:[id number] Magnesium Sulfate Inj 4 GM In 100 / 100 NS Inj 92 ML @ 50 mls/hr IV.SIG UNSCH PRN Rx#:[id number] Thiamine Inj 500 MG In NS Inj 255 / 255 510 / 510 250 ML @ 62.5 mls/hr IV.SIG Q8H MARK Rx#:[id number] Output: Urine 3200 / 3200 Other: # Voids 3 Date of Last Bowel Movement 06/06/18 06/06/18 # Bowel Movements 2 Narrative: GENERAL: No distress. SKIN: Warm and dry. HEAD: Normocephalic. EYES: No scleral icterus. No injection or drainage. NECK: Supple, trachea midline. No JVD or lymphadenopathy. CARDIOVASCULAR: Tachycardic without murmurs, gallops, or rubs. RESPIRATORY: Breath sounds equal bilaterally. No accessory muscle use. GASTROINTESTINAL: Abdomen soft, non-tender, nondistended. MUSCULOSKELETAL: No cyanosis, or edema. BACK: Nontender without obvious deformity. No CVA tenderness. Results Procedures completed during hospitalization: None Labs on day of discharge: Labs from last 24 hours 06/07/18 05:50 Sodium 137 Potassium 3.5 Chloride 103 Carbon Dioxide 26.2 Anion Gap 8 BUN 3 L Creatinine 0.54 L Estimated GFR Greater than 89 Random Glucose 114 H Calcium 8.8 Magnesium 1.3 L - Impressions ITS Impressions Chest X-Ray 05/31/18 08:50 CONCLUSION: Left lower lobe density as above likely mild atelectasis or developing airspace disease.. Abdomen/Pelvis CT 05/31/18 12:28 CONCLUSION: 1. Left lower lobe pneumonia. 2. Fatty liver and splenomegaly. Discharge Plan - Discharge Disposition Patient Disposition: Left Against Medical Advice - Discharge Condition Condition: Fair - Discharge Order Discharge Orders: AMA Discharge (Routine); Ordered 06/07/18 Ordered By: Mahesh Ley - Discharge Details Anticipated Discharge Date: 06/07/18 - Physicians Team Primary Care Provider: NON STAFF,PROVIDER Attending Provider: Mahesh Ley
--- NOTE | 2018-06-07 19:44 | ECG ---
Date Performed: 06/07/2018 Time Performed: 10:30:27 PTAGE: 42 years EKG: Sinus rhythm WITH SHORT IL INTERVAL Since previous tracing, no significant change noted BORDERLINE ECG PREVIOUS TRACING : 05/31/2018 09.00 DOCTOR: Ramon Martinez Interpretating Date/Time 06/07/2018 19:43:57
[2018-06-08] MEDS ORDERED: SODIUM CHLOR 0.9% IV.SIG SCH (09:00)
[2018-06-08] MEDS ORDERED: THIAMINE IV.SIG SCH (09:00)
== END 2018-06-07 16:50 | disposition left against medical advice (07) ==
LOC: PHED 08:17 → PHEDA 10:44 → PH3 12:28 → PHICU 15:41 → PH3 06-06 16:37
PROVIDERS: ADMIT Hospitalist; ATTEND Hospitalist